=== PATIENT | female | born 1955 | race Caucasian/White ===

== ENCOUNTER 2017-01-18 18:33 | Inpatient (IN) | payer OTHER ==
[~2017-01-18] VITALS: Ht 160 cm; Wt 79.5 kg
[2017-01-18] MEDS ORDERED: SOD CHLORIDE 0.9% 1,000 ML IV STA ×2 (18:52→20:20)
[2017-01-18] MEDS ORDERED: DILTIAZEM 25 MG INJ IV ONE ×2 (19:00→20:00)
[2017-01-18 19:22] LABS: ADD SCAN DIFF NO
[2017-01-18 19:23] LABS: ABNORMAL IP MESSAGE 1; HEMOGLOBIN 16.8 g/dl (12.0-16.0); MEAN CORPUSCULAR HEMOGLOBIN 32.4 pg (29.0-33.0); MEAN CORPUSCULAR VOLUME 92.5 fl (82.0-101.0); MEAN PLATELET VOLUME 10.5 fl (7.4-10.4); PLATELET COUNT 201 10^3/UL (140-415); RED BLOOD COUNT 5.19 10^6/ul (4.20-5.40); RED CELL DISTRIBUTION WIDTH 12.3 % (11.5-14.5); WHITE BLOOD COUNT 9.8 10^3/ul (4.8-10.8)
[2017-01-18 19:44] LABS: INR 0.96; PARTIAL THROMBOPLASTIN TIME 25.2 Sec (25.0-35.0); PROTIME 12.8 Sec (12.2-14.2)
[2017-01-18] MEDS ORDERED: ENOXAPARIN 80 MG/0.8 ML SYG SC SCH (20:00)
[2017-01-18 20:05] LABS: CHLORIDE 96 mmol/L (97-110); POTASSIUM 3.4 mmol/L (3.5-5.1); SODIUM 142 mmol/L (135-144)
[2017-01-18] MEDS ORDERED: AMLO-147 PO (20:07)
[2017-01-18] MEDS ORDERED: ASPI-664 PO (20:07)
[2017-01-18 20:08] LABS: ANION GAP 20 (8-16); BLOOD UREA NITROGEN 23 mg/dl (7-20); CALCIUM 10.3 mg/dl (8.4-10.2); CARBON DIOXIDE 29 mmol/L (21-31); CREATININE 0.69 mg/dl (0.44-1.00); GLUCOSE 139 mg/dl (70-220)
[2017-01-18] MEDS ORDERED: METO-448 PO (20:08)
[2017-01-18] MEDS ORDERED: BENA1TAB13 PO (20:08)
[2017-01-18] MEDS ORDERED: NITR12SP TL (20:08)
--- NOTE | 2017-01-18 20:09 | RADRPT ---
PROCEDURE: Portable chest x-ray. CLINICAL INDICATION: Chest pain. TECHNIQUE: Portable AP view of the chest. COMPARISON: None. FINDINGS: There is mild vascular congestion. There is minimal bibasilar atelectasis. . The cardiac silhoue tte is magnified. No pleural effusion is seen. There is no pneumothorax. IMPRESSION: 1. Mild vascular congestion. RPTAT: HTAR .Michael Hernandez MD, MD Date Time Electronically viewed and signed by .Michael Hernandez MD, on 01/18/2017 20:08 .R/
[2017-01-18] MEDS ORDERED: SOD CHLORIDE 0.9% 1,000 ML IV SCH (20:15)
[2017-01-18 20:19] LABS: TROPONIN-I < 0.012 ng/ml (0.00-0.12)
[2017-01-18] MEDS ORDERED: POTASSIUM CHLORIDE (SR) 20 MEQ TAB PO STA (20:20)
--- NOTE | 2017-01-18 20:20 | ERA ---
ER Documentation Chief Complaint Date/Time DATE: 01/18/17 TIME: 20:16 Chief Complaint chest pain w/ sob x 3 days HPI This is a 61-year-old female who presents to the emergency room for evaluation of palpitations and shortness of breath is progressively gotten worse over the past 3 days. This patient did state that she has a history of atrial fibrillation and she did have an angiogram done in [place] which showed a 90% stenosis of the majority of her arteries. This patient states that she is not on any medication for atrial fibrillation which were admissions clinician office today, Dr. Everett who evaluated her and sent her to the emergency room for admission and an angiogram. When I evaluated this patient as she was complaining of palpitations and I did note a heart rate of 155 bpm. ROS All systems reviewed and are negative except as per history of present illness. Medications Home Meds Reported Medications Nitroglycerin* (Nitroglycerin* [place]) 400 Mcg/[place], 1 SPRAY TL Q5M Y for CHEST PAIN, SPRAY 01/18/17 Benazepril-Hydrochlorothiazide (Benazepril-Hydrochlorothiazide) 20-12.5 Mg Tablet, 1 TAB PO DAILY, #30 TAB 01/18/17 Metoprolol Tartrate* (Lopressor*) 25 Mg Tab, 25 MG PO BID, #60 TAB 01/18/17 Aspirin* (Aspirin* EC) 81 Mg Tablet.dr, 81 MG PO DAILY, TAB 01/18/17 Amlodipine Besylate* (Amlodipine Besylate*) 10 Mg Tablet, 10 MG PO DAILY, #30 TAB 01/18/17 Allergies Allergies: Coded Allergies: No Known Allergy (Unverified , 01/18/17) PMhx/Soc History of Surgery: No Anesthesia Reaction: No Hx Neurological Disorder: No Hx Respiratory Disorders: No Hx Cardiac Disorders: Yes (A FIB) Hx Psychiatric Problems: No Hx Miscellaneous Medical Probl: Yes (DM ) Hx Alcohol Use: No Hx Substance Use: No Hx Tobacco Use: No Smoking Status: Never smoker Physical Exam Vitals Vital Signs Date Time Temp Pulse Resp B/P Pulse Ox O2 Delivery O2 Flow Rate FiO2 01/18/17 19:30 97 17 110/73 98 Room Air 01/18/17 19:23 98 01/18/17 19:15 107 17 108/91 98 Room Air 01/18/17 19:00 153 18 119/96 99 Room Air 01/18/17 18:37 98.9 68 20 130/106 96 Physical Exam INITIAL VITAL SIGNS: Reviewed by me GENERAL: The patient is well developed and appropriate for usual state of health in no apparent distress HEENT: Pupils equal, round, and reactive to light. EOMI. There is no scleral icterus. NECK: C-spine is soft and supple, there is no meningismus. There is no cervical lymphadenopathy. LUNGS: Clear to auscultation bilaterally. There are no rales, wheezes or rhonchi. HEART: Irregularly irregular rhythm, no murmurs, clicks, rubs or gallops. ABDOMEN: Soft, non-tender, non-distended. There are bowel sounds in all four quadrants. No rebound or guarding. EXTREMITIES: There is no peripheral cyanosis or edema. No focal swelling or erythema. NEUROLOGICAL: The patient moves all four extremities with 5/5 strength. Cranial nerves II - XII are intact. Normal gait. Alert and oriented SKIN: There is no apparent rash or petechiae. HEME/LYMPHATIC: There is no evidence of excessive bruising or lymphedema. PSYCHIATRIC: The patient does not appear anxious or depressed. Result Diagram: 01/18/17189901/18/171899 Results 24 hrs Laboratory Tests Test 01/18/17 19:00 White Blood Count 9.810^3/ul Red Blood Count 5.1910^6/ul Hemoglobin 16.8g/dl Hematocrit 48.0% Mean Corpuscular Volume 92.5fl Mean Corpuscular Hemoglobin 32.4pg Mean Corpuscular Hemoglobin Concent 35.0g/dl Red Cell Distribution Width 12.3% Platelet Count 33708^3/UL Mean Platelet Volume 10.5fl Prothrombin Time 12.8Sec Prothrombin Time Ratio 1.0 INR International Normalized Ratio 0.96 Activated Partial Thromboplast Time 25.2Sec Sodium Level 142mmol/L Potassium Level 3.4mmol/L Chloride Level 96mmol/L Carbon Dioxide Level 29mmol/L Anion Gap 20 Blood Urea Nitrogen 23mg/dl Creatinine 0.69mg/dl Glucose Level 139mg/dl Calcium Level 10.3mg/dl Magnesium Level 1.8mg/dl Troponin I Pending Current Medications Medications (Trade) Dose Ordered Sig/[place] Route PRN Reason Start Time Stop Time Status Last Admin Dose Admin Sodium Chloride (NS) 1,000 ml @ 1,000 mls/hr Q1H STAT IV 01/18/17 18:52 01/18/17 19:51 DC 01/18/17 19:02 Diltiazem HCl (Cardizem Iv) 10 mg ONCE ONCE IV 01/18/17 19:00 01/18/17 19:01 DC 01/18/17 19:06 Diltiazem HCl (Cardizem Iv) 5 mg ONCE ONCE IV 01/18/17 20:00 01/18/17 20:01 DC 01/18/17 19:25 Enoxaparin Sodium (Lovenox) 80 mg ONCE SC 01/18/17 20:00 01/18/17 23:00 Procedures/MDM EKG: Rate/Rhythm: Atrial fibrillation with rapid ventricular response QRS, ST, T-waves: [No changes consistent w/ acute ischemia] Impression: Atrial fibrillation with rapid ventricular response Chest X-ray 1V Interpreted by me: Soft Tissue: No acute abnormalities Bones: No acute abnormalities Mediastinum/Cardiac Silhouette/Lungs: [No acute abnormalities] This 61-year-old female presents to the emergency room for evaluation of heart palpitations after being sent in by her admissions clinician. When I evaluated her I did note that this patient was in atrial fibrillation with rapid ventricular response. She did have a heart rate of 135 bpm. She was hemodynamically stable , and was not hypoxic. The patient was given 10 mg of Cardizem with minor relief and an additional 5 mg of Cardizem was given with a rate control of less than 100 bpm. This patient now has a heart rate of 94 bpm. She is in no acute distress. Lab work was obtained including a troponin which is within normal limits. The patient was sent in by her admissions clinician, Dr. Everett and I have spoken to him and he would like the patient admitted at this time for an angiogram. He would also like the patient started on Lovenox at this time and not Coumadin as he is planning an angiogram for possibly tomorrow. I have contacted this patient's admitting physician, Dr. Mcgee who is okay with the patient being admitted at this time to the telemetry floor. Cardiac Critical Care: Excluding all billable procedures Time: 38 minutes Treatments/Evaluations: Close monitoring for dangerous arrhythmia and cardiovascular collapse, while treating with advance cardiac medications and techniques. Departure Diagnosis: Primary Impression: Atrial fibrillation with RVR Additional Impressions: Hypercalcemia Heart palpitations Condition: ABISAI Mckeon DO January 18, 2017 20:20
[2017-01-18 20:30] VITALS: TEMP 98.6
[2017-01-18] MEDS ORDERED: ONDANSETRON 4 MG INJ IV PRN ×2 (20:30→22:30)
[2017-01-18] MEDS ORDERED: ACETAMINOPHEN 325 MG TAB PO PRN ×2 (20:30→22:30)
[2017-01-18 21:00] LABS: EOSINOPHILS # 0.1 10^3/ul (0.0-0.5); LYMPHOCYTES # 5.1 10^3/ul (0.8-2.9); MONOCYTE # 0.9 10^3/ul (0.3-0.9); NEUTROPHIL # 3.7 10^3/ul (1.6-7.5)
[2017-01-18 21:01] LABS: PLATELET ESTIMATE PLT APPEAR ADEQUATE
[2017-01-18] MEDS ORDERED: NACL 0.9% 3 ML SYG IV SCH (22:30)
[2017-01-18 23:00] VITALS: Ht 160 cm; Wt 79.5 kg
[2017-01-18] MEDS ORDERED: NITROGLYCERIN AEROSOL (4.9 GM) TL PRN (23:00)
[2017-01-18] MEDS: FAMOTIDINE 20 MG INJ IV SCH (23:09)
[2017-01-18] MEDS: METOPROLOL 25 MG TAB PO SCH (23:09)
[2017-01-18] MEDS: SOD CHLORIDE 0.9% 1,000 ML IV SCH (23:15)
[2017-01-19] VITALS (12 sets, daily range): BP systolic 99–174; BP diastolic 75–92; PULSE 113–160; RESP 18
--- NOTE | 2017-01-19 00:29 | HP ---
Date/Time of Note Date/Time of Note DATE: 01/19/17 TIME: 00:13 Assessment/Plan VTE Prophylaxis VTE Prophylaxis Intervention: LMWH Lines/Catheters IV Catheter Type (from [place]): Peripheral IV Urinary Cath still in place: No Assessment/Plan Chief Complaint/Hosp Course This is a 61-year-old female being admitted to the telemetry floor for: #1 A. fib with RVR: Patient currently right now is rate controlled after having received a total of 50 mg of Cardizem. We will continue to monitor the patient on telemetry. We will continue Lovenox as per cardiology recommendations every 12 hours. Patient is to undergo possible angiogram tomorrow by her executive consultant Dr. Everett. Will keep patient n.p.o. after midnight. We will continue patient's home medications. Recheck BMP in the a.m. and await TSH results Trend cardiac enzymes. X-ray showed some mild vascular congestion. She is in no acute distress right now will hold off on any Lasix at this time. Defer to cardiology for further management. #2 hypokalemia: Potassium was 3.4 was repleted in the ER will repeat in the a.m. #3 DVT and GI prophylaxis: Lovenox, famotidine. Further management will be implemented as per the clinical course. Problems: HPI/ROS Admit Date/Time Admit Date/Time January 18, 2017 at 20:15 Hx of Present Illness Chief complaint: Fast heart rate, palpitations This is a 61-year-old female who presents to the emergency room for evaluation of palpitations and shortness of breath is progressively gotten worse over the past 3 days. This patient did state that she has a history of atrial fibrillation and she did have an angiogram done in [place] which showed a 90% stenosis of the majority of her arteries. This patient states that she is not on any medication for atrial fibrillation which were executive consultant office today, Dr. Everett who evaluated her and sent her to the emergency room for admission and an angiogram. On admission as per the ED documentation patient had a heart rate of 155 bpm. She did receive a total of Cardizem 15 mg. At this time during my examination patient on telemetry monitoring does appear to be an irregularly irregular rhythm at approximately 90 bpm. Currently denies any palpitations or chest pain or headache or shortness of breath. Allergies: NKDA Medications: See MAR ROS Const: As per HPI Eyes : No pain discharge or redness or change in visual acuity ENT: No pain, sore throat, congestion, congestion, dysphagia or discharge Respiratory: As per HPI Cardiovascular: As per HPI GI : no change in appetite, abdominal pain, nausea, vomiting, diarrhea, constipation, or change in the color his stool Genitourinary: No dysuria, hematuria, flank pain , discharge or CVA tenderness Musculoskeletal: No joint pain, back pain, neck pain, restricted range of motion in neck or joints Skin: No rash, bruising or hives Neuro: No headache, dizziness, syncope, seizure, focal weakness Endocrine: No polyuria, polydipsia, temperature intolerance Psych: No hallucination, depression, anxiety or suicidal ideation PMH/Family/Social Past Medical History Hypertension Past Surgical History Past Surgical Hx: no surgical history Family History Significant Family History: heart disease (Mom) Social History Alcohol Use: none Smoking Status: Never smoker Drug Use: none Exam/Review of Systems Vital Signs Vitals Vital Signs Date Time Temp Pulse Resp B/P Pulse Ox O2 Delivery O2 Flow Rate FiO2 01/18/17 22:20 107 20 130/86 94 Room Air 01/18/17 20:30 98.6 Intake and Output 01/18/17 01/18/17 01/19/17 15:00 23:00 07:00 Intake Total 2000 ml Balance 2000 ml Exam Exam General: This is a very pleasant 61-year-old female laying in bed comfortably in no acute distress. HEENT: Atraumatic, normocephalic. The pupils are equal, round and reactive. Extraocular motor are intact Neck: Supple with full range of motion. No rigidity or meningismus Chest: Nontender Lungs: Clear to auscultation bilaterally no crackles rales or wheezing Heart: Irregularly irregular rhythm, no murmurs appreciated. Abdomen: Soft , nontender, nondistended , bowel sounds are present. No guarding no rebound tenderness , No masses or organomegaly. No costovertebral temporal angle mass Extremities: Normal to inspection, no edema no cyanosis Neurologic: Normal mental status, speech normal, cranial nerves II through XII are intact, motor and sensory are intact, no focal weakness Additional Comments ROCEDURE: Portable chest x-ray. CLINICAL INDICATION: Chest pain. TECHNIQUE: Portable AP view of the chest. COMPARISON: None. FINDINGS: There is mild vascular congestion. There is minimal bibasilar atelectasis. . The cardiac silhouette is magnified. No pleural effusion is seen. There is no pneumothorax. IMPRESSION: 1. Mild vascular congestion. EKG: Rate/Rhythm: Atrial fibrillation with rapid ventricular response QRS, ST, T-waves: [No changes consistent w/ acute ischemia] Impression: Atrial fibrillation with rapid ventricular response As per ED physician documentation Labs Result Diagram: 01/18/17 19001/18/17 190 Medications Medications Current Medications Sodium Chloride 1,000 ml @ 80 mls/hr [id number] IV ; Start 01/18/17 at 20:15; Stop 01/19/17 at 08:44 Sodium Chloride (NS) 1,000 ml @ 50 mls/hr Q20H IV Last administered on 23:15; Admin Dose 50 MLS/HR; Start 01/18/17 at 22:25 Ondansetron HCl (Zofran Inj) 4 mg Q6H PRN IV NAUSEA AND/OR VOMITING; Start at 22:30 Acetaminophen (Tylenol Tab) 650 mg Q6H PRN PO PAIN LEVEL 1-3 OR FEVER; Start at 22:30 Famotidine (Pepcid Iv) 20 mg Q12 IV Last administered on 01/18/17 23:09; Admin Dose 20 MG; Start 01/18/17 at 22:30 Amlodipine Besylate (Norvasc) 10 mg DAILY PO ; Start 01/19/17 at 09:00 Aspirin (Halfprin) 81 mg DAILY PO ; Start 01/19/17 at 09:00 Metoprolol Tartrate (Lopressor) 25 mg BID PO Last administered on 01/18/17 23: 09; Admin Dose 25 MG; Start 01/18/17 at 23:00 Nitroglycerin (Nitroglycerin ([place])) 1 spray Q5M PRN TL CHEST PAIN; Start at 23:00 Miscellaneous Information 1 tab DAILY PO ; Start 01/19/17 at 09:00; Status ZAHEER CALZADA January 19, 2017 00:24
[2017-01-19 01:29] LABS: CREATINE KINASE 44 IU/L (23-200)
[2017-01-19 01:43] LABS: CK-MB 0.62 ng/ml (0.0-2.4)
[2017-01-19 01:44] LABS: TROPONIN-I < 0.012 ng/ml (0.00-0.12)
[2017-01-19 07:32] LABS: ADD SCAN DIFF NO
[2017-01-19 07:38] LABS: BASOPHILS % 0.6 % (0.0-2.0); EOSINOPHILS # 0.2 10^3/ul (0.0-0.5); EOSINOPHILS % 2.8 % (0.0-7.0); HEMATOCRIT 40.2 % (37.0-47.0); HEMOGLOBIN 13.6 g/dl (12.0-16.0); LYMPHOCYTES # 3.9 10^3/ul (0.8-2.9); LYMPHOCYTES % 58.1 % (15.0-51.0); MEAN CORPUSCULAR HEMOGLOBIN 32.2 pg (29.0-33.0); MEAN CORPUSCULAR HGB CONC 33.8 g/dl (32.0-37.0); MEAN PLATELET VOLUME 10.7 fl (7.4-10.4); MONOCYTE # 0.5 10^3/ul (0.3-0.9); MONOCYTES % 6.9 % (0.0-11.0); NEUTROPHIL # 2.1 10^3/ul (1.6-7.5); NEUTROPHILS % 31.5 % (39.0-77.0); PLATELET COUNT 155 10^3/UL (140-415); RED BLOOD COUNT 4.23 10^6/ul (4.20-5.40); RED CELL DISTRIBUTION WIDTH 12.4 % (11.5-14.5); WHITE BLOOD COUNT 6.7 10^3/ul (4.8-10.8)
[2017-01-19] MEDS: ASPIRIN (EC) 81 MG TAB PO SCH (08:14)
[2017-01-19] MEDS: BENAZEPRIL 20 MG TAB PO SCH (08:15)
[2017-01-19] MEDS: METOPROLOL 25 MG TAB PO SCH ×3 (08:15→21:08)
[2017-01-19] MEDS: HYDROCHLOROTHIAZIDE 12.5 MG CAP PO SCH (08:15)
[2017-01-19] MEDS: FAMOTIDINE 20 MG INJ IV SCH ×2 (08:15→20:36)
[2017-01-19] MEDS: ENOXAPARIN 80 MG/0.8 ML SYG SC SCH ×2 (08:17→20:46)
[2017-01-19 08:47] LABS: ALBUMIN 3.6 g/dl (3.3-4.9); ALBUMIN/GLOBULIN RATIO 1.33; BILIRUBIN,INDIRECT 0.5 mg/dl (0-1.1); BILIRUBIN,TOTAL 0.5 mg/dl (0.2-1.3); CALCIUM 9.2 mg/dl (8.4-10.2); CREATININE 0.66 mg/dl (0.44-1.00); POTASSIUM 4.2 mmol/L (3.5-5.1); TOTAL PROTEIN 6.3 g/dl (6.1-8.1)
[2017-01-19 08:49] LABS: CREATINE KINASE 42 IU/L (23-200)
[2017-01-19] MEDS ORDERED: AMLODIPINE 10 MG TAB PO SCH (09:00)
[2017-01-19 09:14] LABS: TROPONIN-I < 0.012 ng/ml (0.00-0.12)
[2017-01-19] MEDS ORDERED: METOPROLOL 5 MG INJ IV PRN (12:00)
[2017-01-19] MEDS: SOD CHLORIDE 0.9% 1,000 ML IV SCH (17:50)
[2017-01-19] MEDS ORDERED: DIGOXIN 500 MCG INJ IV ONE (21:00)
[2017-01-19] MEDS ORDERED: FUROSEMIDE 20 MG INJ IV ONE (21:00)
[2017-01-20] VITALS (13 sets, daily range): BP systolic 92–137; BP diastolic 62–98; PULSE 78–146; RESP 16–20
--- NOTE | 2017-01-20 00:08 | CONS ---
DATE OF ADMISSION: 01/18/2017 DATE OF CONSULTATION: 01/19/2017 REASON FOR CONSULTATION: Atrial fibrillation with rapid ventricular response, obstructive coronary artery disease, chest pain. REQUESTING PHYSICIAN: Dr. Fairchild from the hospitalist service, Dr. Tanvir Everett. HISTORY OF PRESENT ILLNESS: Ms. Miller is a 61-year-old female with a history of coronary artery d isease, status post left heart catheterization done in [place], which revealed multivessel obstructiv e coronary artery disease with the patient being recommended to undergo surgery, but the patient did not do this and returned to the [place]. The patient had palpitations and presented to [facility] academic guidance specialist's office, Dr. Tanvir Everett, where she was found to be atrial fibrillation with rapid ventricular response. The patient was subsequently referred to the emergency department here at [facility]. Upon arrival, temperature 98.9, blood pressure 130/106, pulse 68, respir atory 20, saturating 96%. The patient's labs revealed white count 9.8, hemoglobin 16.8, platelet co unt 201. A sodium of 142, potassium 3.4, creatinine 0.69, BUN of 23. Troponin, which was negative. TSH of 1.52. INR 0.96. The patient underwent a chest x-ray revealing mild vascular congestion. The patient's electrocardiogram revealed atrial fibrillation with rapid ventricular response, rate o f 155, normal axis, normal intervals with nonspecific ST and T-wave abnormalities diffusely. The walt michael subsequently has been admitted to the floor where she has been placed on Lovenox, aspirin, mar cium channel rachid, and started on beta rachid by myself today due to rapid heart rates. The quang rodrigues continued to have complaints of chest pain and palpitations. PAST MEDICAL HISTORY: As above in HPI. MEDICATIONS PRIOR TO ADMIT: 1. Norvasc 10 mg daily. 2. Benazepril/hydrochlorothiazide 20/12.5 mg daily. 3. Metoprolol 25 mg p.o. b.i.d. 4. Sublingual nitroglycerin p.r.n. 5. Aspirin 81 mg daily. MEDICATIONS CURRENTLY IN HOSPITAL. 1. Toprol 5 mg IV push q.6h. p.r.n. 2. Norvasc 10 mg daily. 3. Aspirin 81 mg daily. 4. Hydrochlorothiazide 12.5 mg daily. 5. Lovenox 80 mg subq q.12. 6. Benazepril 20 mg daily. 7. Metoprolol 25 mg p.o. b.i.d. 8. Sublingual nitroglycerin p.r.n. 9. Pepcid 20 mg IV q.12h. 10. IV fluid hydration at 50 mL an hour. ALLERGIES: NO KNOWN DRUG ALLERGIES. SOCIAL HISTORY: No tobacco, ETOH, or illicit drug use. FAMILY HISTORY: Negative for sudden cardiac or early CAD. REVIEW OF SYSTEMS: As above in HPI. CONSTITUTIONAL: No fevers, chills. PULMONARY: Shortness of breath. CARDIOVASCULAR: Chest pain, palpitations, atrial fibrillation. GASTROINTESTINAL: No vomiting. GENITOURINARY: No hematuria. MUSCULOSKELETAL: Degenerative joint disease. PSYCHIATRIC: The patient denies depression. NEUROLOGIC: No documented history of CVA. PHYSICAL EXAMINATION: VITAL SIGNS: Temperature 98, blood pressure 146/90, pulse in the 130s, satting 98%. GENERAL: The patient is alert, awake, complaining of shortness of breath, chest pain, palpitations. NECK: JVP approximately 8 to 9 cm water. CHEST: Fair movement throughout with decreased breath sounds at bases bilaterally. HEART: Tachycardic, irregularly irregular, I/ systolic murmur. ABDOMEN: Positive bowel sounds, soft. EXTREMITIES: No pitting edema, 1+ pulses bilaterally, posterior tibial. LABORATORY DATA: As above in HPI, most recently from the , white blood cell count 6.7, hemoglob in 13.6, platelet count 155. Sodium 139, potassium 4.2, creatinine 0.6, BUN 17. Troponin negative. INR 0.96. IMAGING STUDIES: As above in HPI. No further imaging studies for my review at this time. ELECTROCARDIOGRAM: As above in HPI. No further electrocardiograms for my review at this time. IMPRESSION: 1. Atrial fibrillation with rapid ventricular response. 2. Chest pain. 3. Coronary artery disease with known obstructive lesions by left heart catheterization recently in [place]. 4. Abnormal electrocardiogram with diffuse nonspecific ST-T abnormalities, assess for acute coronar y syndrome. 5. Hypertension, somewhat labile. RECOMMENDATIONS: 1. At this time, would maintain the patient on telemetry monitoring to follow rhythm and rate contr ol closely. 2. Would increase the patient's beta rachid to improve heart rate control and will give the patien t digoxin load in order to acutely improve heart rate control. 3. Would send 1 additional troponin to ensure this patient has not provoked any acute coronary synd romes in the setting of rapid atrial fibrillation with supposedly known obstructive lesions in her c oronary arteries. 4. Continue the patient's benazepril at this time and additionally continue the patient's Lovenox f or prevention of thromboembolic complications in the setting of atrial fibrillation. Will decrease the patient's Norvasc to allow the patient to better tolerate the beta rachid. 5. Check a 2D echocardiogram to further assess patient's ejection fraction, wall motion, and any ma yoel valve abnormalities. 6. Will review the patient's cath films that have been brought to me from her primary academic guidance specialist, Dr. Everett, and assess for the possibility of possible angioplasty versus definite need for coronar y artery bypass graft surgery, as the patient is unsure if would like to undergo bypass surgery at t his time. Thank you for allowing me to take part in the care of this patient. I will continue to follow along very closely with you with further recommendations to be made as the patient progresses through her inpatient hospital clinical course. Dictated By: JOSSY SUAREZ/ANNE Conf#: [id number] DID#: [id number] CC: ZAHEER FAIRCHILD MD;*EndCC*
[2017-01-20] MEDS: ZOLPIDEM 5 MG TAB PO PRN ×2 (01:22→20:59)
[2017-01-20] MEDS: DIGOXIN 500 MCG INJ IV SCH ×2 (03:37→12:49)
[2017-01-20 07:24] LABS: ADD SCAN DIFF NO
[2017-01-20 07:36] LABS: BASOPHIL # 0.1 10^3/ul (0.0-0.1); BASOPHILS % 0.7 % (0.0-2.0); EOSINOPHILS # 0.2 10^3/ul (0.0-0.5); EOSINOPHILS % 2.6 % (0.0-7.0); HEMOGLOBIN 13.9 g/dl (12.0-16.0); LYMPHOCYTES # 3.5 10^3/ul (0.8-2.9); LYMPHOCYTES % 50.4 % (15.0-51.0); MEAN CORPUSCULAR HEMOGLOBIN 31.9 pg (29.0-33.0); MEAN CORPUSCULAR HGB CONC 33.9 g/dl (32.0-37.0); MEAN PLATELET VOLUME 10.6 fl (7.4-10.4); MONOCYTE # 0.5 10^3/ul (0.3-0.9); NEUTROPHIL # 2.7 10^3/ul (1.6-7.5); PLATELET COUNT 147 10^3/UL (140-415); RED BLOOD COUNT 4.36 10^6/ul (4.20-5.40); RED CELL DISTRIBUTION WIDTH 12.2 % (11.5-14.5); WHITE BLOOD COUNT 6.9 10^3/ul (4.8-10.8)
[2017-01-20 07:50] LABS: POTASSIUM 4.2 mmol/L (3.5-5.1)
[2017-01-20 07:53] LABS: CREATININE 0.77 mg/dl (0.44-1.00)
[2017-01-20 07:54] LABS: CALCIUM 9.6 mg/dl (8.4-10.2)
[2017-01-20 07:56] LABS: MAGNESIUM 1.6 mg/dl (1.7-2.5); PHOSPHORUS 3.8 mg/dl (2.5-4.9)
[2017-01-20] MEDS: METOPROLOL 25 MG TAB PO SCH ×2 (08:26→20:44)
[2017-01-20] MEDS: BENAZEPRIL 20 MG TAB PO SCH (08:26)
[2017-01-20] MEDS: HYDROCHLOROTHIAZIDE 12.5 MG CAP PO SCH (08:26)
[2017-01-20] MEDS: FAMOTIDINE 20 MG INJ IV SCH ×2 (08:27→20:43)
[2017-01-20] MEDS: ASPIRIN (EC) 81 MG TAB PO SCH (08:27)
[2017-01-20] MEDS: ENOXAPARIN 80 MG/0.8 ML SYG SC SCH ×2 (08:34→20:53)
[2017-01-20] MEDS ORDERED: AMLODIPINE 10 MG TAB PO SCH (09:00)
[2017-01-20] MEDS ORDERED: MAGNESIUM SULFATE 2 GM/50 ML 50 ML IVPB ONE (15:00)
--- NOTE | 2017-01-20 16:28 | PN ---
DATE: 01/20/2017 TIME OF EVALUATION: 1530. SUBJECTIVE DATA: Denies any chest pain. Currently, the heart rate is better controlled. OBJECTIVE DATA: VITAL SIGNS: Temperature 98.3, pulse rate 93, respiratory rate 18, blood pressure 92/62, oxygen saturation 93% on room air. GENERAL: This is an obese female lying in bed in no apparent distress. HEENT: Head normocephalic and atraumatic. Eyes: Anicteric sclerae. Conjunctivae clear. ENT: Nasal septum is midline. Oral mucosa is moist. NECK: Supple. No JVD noticed. RESPIRATORY: Bilaterally clear to auscultation. No adventitious breath sounds heard. No use of accessory muscles of respiration. CARDIAC: Irregularly irregular rhythm. S1 and S2 heard. ABDOMEN: Soft, nontender and nondistended. Bowel sounds positive in all 4 quadrants. GENITOURINARY: Deferred. EXTREMITIES: No cyanosis, no clubbing, no edema. Peripheral pulses palpable. SKIN: The patient is awake, alert and oriented. Cranial nerves are grossly intact. LABORATORY AND DIAGNOSTIC DATA: WBC 6.9, hemoglobin 13.9, hematocrit 41.0, platelet count 147. Sodium 142, potassium 4.0, chloride 103, carbon dioxide 28 , anion gap 15, BUN 12, creatinine 0.7, glucose 125, calcium 9.6, phosphorus 3.1 , magnesium 1.6. ASSESSMENT AND PLAN: 1. Atrial fibrillation with rapid ventricular response. Currently, rate controlled. Continue beta blockers. The patient on therapeutic anticoagulation for stroke prophylaxis. 2. Essential hypertension. Currently on antihypertensives. 3. Coronary artery disease with known obstructing lesion for left heart catheterization in [place]. Continue anticoagulation. Await further input from Cardiology. Pending 2D echocardiogram. 4. Hypomagnesemia. Replete. 5. Obesity, BMI of 31.0 kg/meter sq. Weight reduction will be advised. A fasting lipid panel and hemoglobin A1c will be obtained. 6. Fluid, electrolytes and nutrition, on a low cholesterol diet. 7. Deep venous thrombosis prophylaxis. On therapeutic anticoagulation. 8. Gastrointestinal prophylaxis. H2 receptor blockers. PLAN: 1. Continue telemetry monitoring. 2. Await further inputs from Cardiology. 3. Replete magnesium. The case and management of this patient was fully discussed with Dr. Freeman. ASHWINI FREEMAN MD, AM/ANNE Conf#: [id number] [facility]#: [id number] MTDD
--- NOTE | 2017-01-20 17:27 | CONS ---
Date/Time of Note Date/Time of Note DATE: 01/20/17 TIME: 17:23 Assessment/Plan Assessment/Plan Chief Complaint/Hosp Course IMPRESSION: 1. Atrial fibrillation with rapid ventricular response.-now improved HR s/p digoxin load 2. Chest pain.-negative troponin x 3 even after rapid AF 3. Coronary artery disease with known obstructive lesions by left heart catheterization recently in [place]. 4. Abnormal electrocardiogram with diffuse nonspecific ST-T abnormalities, assess for acute coronary syndrome. 5. Hypertension, somewhat labile. Recc: -Tele -Continue BB -Start PO digoxin -Decrease dose of norvasc and continue ACEI given marginal BP -Continue asa/lovenox -Consider d/c of HCTZ if BP remains marginal -Patient tenatively scheduled for C with possible PTCA/stent monday at 12 noon Problems: Consultation Date/Type/Reason Admit Date/Time January 18, 2017 at 20:15 Initial Consult Date 01/19/17 Type of Consultation: Cardiology Reason for Consultation AF/cad Referring Provider: JOHNIE FREEMAN Exam/Review of Systems Vital Signs Vitals Vital Signs Date Time Temp Pulse Resp B/P Pulse Ox O2 Delivery O2 Flow Rate FiO2 01/20/17 16:43 85 01/20/17 15:15 98.8 18 92/62 93 01/19/17 20:00 Room Air Intake and Output 01/19/17 01/19/17 01/20/17 15:00 23:00 07:00 Intake Total 1000 ml 400 ml Balance 1000 ml 400 ml Exam Review of Systems: CONSTITUTIONAL: No fevers, chills. PULMONARY: No sob CARDIOVASCULAR: No chest pain/palpitations GASTROINTESTINAL: No nausea/vomiting. GENITOURINARY: No hematuria/dysuria. MUSCULOSKELETAL: No myagias/arthalgias. PSYCHIATRIC: The patient denies depression. NEUROLOGIC: No weakness Constitutional: alert Psych: no complaints Head: normocephalic ENMT: mucosa pink and moist Neck: jvd, supple Respiratory: clear to auscultation Cardiovascular: irregular rhythm Gastrointestinal: non-tender, soft Musculoskeletal: muscle tone (normal) Extremities: edema (none) Neurological: lethargic Results Result Diagram: 01/20/17 0647 01/20/17 0647 Results 24 hrs Laboratory Tests Test 01/20/17 06:47 White Blood Count 6.9 Red Blood Count 4.36 Hemoglobin 13.9 Hematocrit 41.0 Mean Corpuscular Volume 94.0 Mean Corpuscular Hemoglobin 31.9 Mean Corpuscular Hemoglobin Concent 33.9 Red Cell Distribution Width 12.2 Platelet Count 147 Mean Platelet Volume 10.6 H Neutrophils % 39.0 Lymphocytes % 50.4 Monocytes % 7.0 Eosinophils % 2.6 Basophils % 0.7 Nucleated Red Blood Cells % 0.0 Neutrophils # 2.7 Lymphocytes # 3.5 H Monocytes # 0.5 Eosinophils # 0.2 Basophils # 0.1 Nucleated Red Blood Cells # 0.0 Sodium Level 142 Potassium Level 4.2 Chloride Level 103 Carbon Dioxide Level 28 Anion Gap 15 Blood Urea Nitrogen 12 Creatinine 0.77 Glucose Level 125 Calcium Level 9.6 Phosphorus Level 3.8 Magnesium Level 1.6 L Troponin I < 0.012 Medications Medications Current Medications Ondansetron HCl (Zofran Inj) 4 mg Q6H PRN IV NAUSEA AND/OR VOMITING; Start at 22:30 Acetaminophen (Tylenol Tab) 650 mg Q6H PRN PO PAIN LEVEL 1-3 OR FEVER; Start at 22:30 Famotidine (Pepcid Iv) 20 mg Q12 IV Last administered on 01/20/17 08:27; Admin Dose 20 MG; Start 01/18/17 at 22:30 Aspirin (Halfprin) 81 mg DAILY PO Last administered on 01/20/17 08:27; Admin Dose 81 MG; Start 01/19/17 at 09:00 Nitroglycerin (Nitroglycerin ([place])) 1 spray Q5M PRN TL CHEST PAIN; Start at 23:00 Hydrochlorothiazide (Hydrochlorothiazide) 12.5 mg DAILY PO Last administered on 01/20/17 08:26; Admin Dose 12.5 MG; Start 01/19/17 at 09:00 Enoxaparin Sodium (Lovenox) 80 mg Q12 SC Last administered on 01/20/17 08:34; Admin Dose 80 MG; Start 01/19/17 at 09:00 Benazepril HCl (Lotensin) 20 mg DAILY PO Last administered on 01/20/17 08:26; Admin Dose 20 MG; Start 01/19/17 at 09:00 Metoprolol Tartrate (Lopressor) 5 mg Q6H PRN IV Heart Rate >110 Last administered on 01/19/17 13:28; Admin Dose 5 MG; Start 01/19/17 at 12:00 Amlodipine Besylate (Norvasc) 5 mg DAILY PO Last administered on 01/20/17 08: 25; Admin Dose 5 MG; Start 01/20/17 at 09:00 Metoprolol Tartrate (Lopressor) 50 mg BID PO Last administered on 01/20/17 08: 26; Admin Dose 50 MG; Start 01/19/17 at 21:00 Zolpidem Tartrate (Ambien) 5 mg HS PRN PO INSOMNIA Last administered on 01:22; Admin Dose 5 MG; Start 01/19/17 at 21:00 JOSSY DODD January 20, 2017 17:27
--- NOTE | 2017-01-20 19:26 | RADRPT ---
Echocardiogram Report Patient Name: OSCAR LEY Gender: Female Date: 1955 Study Date: 20-Jan-2017 Acetylene Burner: Beatriz Maynard [facility] Location: 5546 Ref. Physician: ZAHEER FAIRCHILD Quality: Adequate Procedures: Transthoracic echocardiogram with complete 2D, M-Mode, and doppler examination. Indications: Atrial Fibrillation w/ RVR. 2D/M Mode Doppler Measurement Value Normal Ranges Measurement Value Normal Ranges LVIDd 2D 4.9 3.5 - 5.6 cm AV Peak Miguel 1.1 m/sec LVIDs 2D 3.0 2.1 - 4.1 cm AV Peak PG 5.0 mmHg FS 2D 38.0 % LVOT Peak Miguel 0.9 m/sec LVPWd 2D 1.1 0.6 - 1.1 cm LVOT Peak PG 3.0 mmHg IVSd 2D 1.0 0.6 - 1.1 cm TR Peak Miguel 2.7 m/sec IVS/LVPW 2D 0.9 TR Peak PG 28.0 mmHg AoR Diam 2D 2.9 2.0 - 3.7 cm RVSP 36.0 mmHg LA/Ao 2D 1 0 - 1 LA Dimen 2D 4.0 2.3 - 4.0 cm Findings Left Ventricle: Normal left ventricular systolic function. Normal left ventricular cavity size. Normal left ventricular wall thickness. Ejection fraction is visually estimated at 4045 %. Tissue Doppler/Mitral Doppler indices are indeterminate in this study due to the presence of atrial fibrillation. Right Ventricle: Normal right ventricular size. Normal right ventricular systolic function. Left Atrium: The left atrium is normal in size. Right Atrium: The right atrium is normal in size. Mitral Valve: Mitral valve leaflets appear mildly thickened. Mild mitral annular calcification. Mild to moderate mitral valve regurgitation. Aortic Valve: No hemodynamically significant aortic stenosis by doppler. Trace aortic valve regurgitation. Tricuspid Valve: Normal appearance of the tricuspid valve. Estimated peak PA systolic pressure 36 mmHg. There is moderate tricuspid regurgitation. Pulmonic Valve: Pulmonic valve not well visualized. Pericardium: Normal pericardium with no significant pericardial effusion. Aorta: Normal aortic root. IVC: Normal size and normal respiratory collapse consistent with normal right atrial pressure. Conclusions 1.Normal left ventricular systolic function. Normal left ventricular cavity size. Normal left ventricular wall thickness. Ejection fraction is visually estimated at 40-45 %. Tissue Doppler/Mitral Doppler indices are indeterminate in this study due to the presence of atrial fibrillation. 2.Mild to moderate mitral valve regurgitation. 3.Trace aortic valve regurgitation. 4.Estimated peak PA systolic pressure 36 mmHg. 5.There is moderate tricuspid regurgitation. Electronically Signed By: Allen Baeza 20-Jan-2017 19:24:57 -0700 Patient Name: OSCAR LEY Study Date: 20-Jan-2017 [id number]
[2017-01-20] MEDS: DILTIAZEM (CD) 120 MG CAP PO SCH (20:44)
[2017-01-20] MEDS ORDERED: METOPROLOL 5 MG INJ IV PRN (21:00)
[2017-01-21] VITALS (11 sets, daily range): BP systolic 109–138; BP diastolic 67–96; PULSE 74–100; RESP 15–19
[2017-01-21 07:26] LABS: ADD SCAN DIFF NO
[2017-01-21 07:29] LABS: BASOPHILS % 0.6 % (0.0-2.0); EOSINOPHILS # 0.2 10^3/ul (0.0-0.5); EOSINOPHILS % 3.5 % (0.0-7.0); HEMATOCRIT 43.6 % (37.0-47.0); HEMOGLOBIN 14.8 g/dl (12.0-16.0); LYMPHOCYTES # 3.4 10^3/ul (0.8-2.9); LYMPHOCYTES % 54.9 % (15.0-51.0); MEAN CORPUSCULAR HEMOGLOBIN 31.6 pg (29.0-33.0); MEAN CORPUSCULAR HGB CONC 33.9 g/dl (32.0-37.0); MEAN PLATELET VOLUME 10.2 fl (7.4-10.4); MONOCYTE # 0.5 10^3/ul (0.3-0.9); MONOCYTES % 7.2 % (0.0-11.0); NEUTROPHIL # 2.1 10^3/ul (1.6-7.5); NEUTROPHILS % 33.6 % (39.0-77.0); PLATELET COUNT 154 10^3/UL (140-415); RED BLOOD COUNT 4.69 10^6/ul (4.20-5.40); RED CELL DISTRIBUTION WIDTH 12.3 % (11.5-14.5); WHITE BLOOD COUNT 6.2 10^3/ul (4.8-10.8)
[2017-01-21 07:50] LABS: CHOL/HDL RATIO 4.1 RATIO; MAGNESIUM 1.8 mg/dl (1.7-2.5); PHOSPHORUS 4.2 mg/dl (2.5-4.9)
[2017-01-21 07:53] LABS: CALCIUM 9.4 mg/dl (8.4-10.2); CREATININE 0.63 mg/dl (0.44-1.00); POTASSIUM 3.9 mmol/L (3.5-5.1)
[2017-01-21] MEDS: FAMOTIDINE 20 MG INJ IV SCH ×2 (08:59→22:38)
[2017-01-21] MEDS: AMLODIPINE 2.5 MG TAB PO SCH (09:00)
[2017-01-21] MEDS: ASPIRIN (EC) 81 MG TAB PO SCH (09:00)
[2017-01-21] MEDS: METOPROLOL 25 MG TAB PO SCH ×2 (09:00→22:40)
[2017-01-21] MEDS: BENAZEPRIL 20 MG TAB PO SCH (09:01)
[2017-01-21] MEDS: DILTIAZEM (CD) 120 MG CAP PO SCH ×2 (09:01→22:39)
[2017-01-21] MEDS: ENOXAPARIN 80 MG/0.8 ML SYG SC SCH ×2 (09:34→22:44)
--- NOTE | 2017-01-21 09:41 | PN ---
Date/Time of Note Date/Time of Note DATE: 01/21/17 TIME: 09:39 Assessment/Plan VTE Prophylaxis VTE Prophylaxis Intervention: LMWH Lines/Catheters [facility] (from [facility] Urinary Cath still in place: No Assessment/Plan Chief Complaint/Hosp Course Assessment and plan 1. A. fib with RVR. Rate controlled at this time. Continue on beta-rachid. Continue on Lovenox anticoagulation. 2. Essential hypertension. Continue antihypertensives and adjust as needed 3. CAD. Note patient did have history of obstructing lesion from left heart catheterization in [place]. Continue anticoagulation. Tentative plan for angiogram with possible PCI on January 23, 2017. 4. Hypomagnesemia. Will monitor and replete as needed 5. Obesity. Reduction was advised DVT prophylaxis: Therapeutic anticoagulation GERD prophylaxis: H2 rachid Disposition plan: Continue with therapeutic dose of Lovenox. Continue telemetry monitoring. Tentative plan for angiogram with possible PCI January 23, 2017. Will follow up Discussed plan of care with Dr. Taveras Problems: Subjective 24 Hr Interval Summary Free Text/Dictation Denies any chest pain at this time. Reports no shortness of breath Exam/Review of Systems Vital Signs Vitals Vital Signs Date Time Temp Pulse Resp B/P Pulse Ox O2 Delivery O2 Flow Rate FiO2 01/21/17 08:33 82 01/21/17 08:05 98.1 15 138/96 94 01/19/17 20:00 Room Air Intake and Output 01/20/17 01/20/17 01/21/17 15:00 23:00 07:00 Intake Total 800 ml 600 ml Balance 800 ml 600 ml Exam Constitutional: alert, oriented Psych: nl mood/affect Head: normocephalic Neck: supple, No jvd Respiratory: normal air movement Cardiovascular: irregular rhythm Gastrointestinal: non-tender, soft Musculoskeletal: nl extremities to inspection, nl gait and stance Extremities: normal pulses Neurological: [employer] II-XII intact, nl mental status Skin: nl turgor Results Result Diagram: 01/21/1715 01/21/1715 Results 24 hrs Laboratory Tests Test 01/21/17 07:15 White Blood Count 6.2 Red Blood Count 4.69 Hemoglobin 14.8 Hematocrit 43.6 Mean Corpuscular Volume 93.0 Mean Corpuscular Hemoglobin 31.6 Mean Corpuscular Hemoglobin Concent 33.9 Red Cell Distribution Width 12.3 Platelet Count 154 Mean Platelet Volume 10.2 Neutrophils % 33.6 L Lymphocytes % 54.9 H Monocytes % 7.2 Eosinophils % 3.5 Basophils % 0.6 Nucleated Red Blood Cells % 0.0 Neutrophils # 2.1 Lymphocytes # 3.4 H Monocytes # 0.5 Eosinophils # 0.2 Basophils # 0.0 Nucleated Red Blood Cells # 0.0 Sodium Level 140 Potassium Level 3.9 Chloride Level 103 Carbon Dioxide Level 28 Anion Gap 13 Blood Urea Nitrogen 9 Creatinine 0.63 Glucose Level 128 Hemoglobin A1c 7.3 H Calcium Level 9.4 Phosphorus Level 4.2 Magnesium Level 1.8 Triglycerides Level 170 H Cholesterol Level 146 LDL Cholesterol, Calculated 77 HDL Cholesterol 35 Cholesterol/HDL Ratio 4.1 Medications Medications Current Medications Ondansetron HCl (Zofran Inj) 4 mg Q6H PRN IV NAUSEA AND/OR VOMITING; Start at 22:30 Acetaminophen (Tylenol Tab) 650 mg Q6H PRN PO PAIN LEVEL 1-3 OR FEVER; Start at 22:30 Famotidine (Pepcid Iv) 20 mg Q12 IV Last administered on 01/21/17 08:59; Admin Dose 20 MG; Start 01/18/17 at 22:30 Aspirin (Halfprin) 81 mg DAILY PO Last administered on 01/21/17 09:00; Admin Dose 81 MG; Start 01/19/17 at 09:00 Nitroglycerin (Nitroglycerin ([place])) 1 spray Q5M PRN TL CHEST PAIN; Start at 23:00 Enoxaparin Sodium (Lovenox) 80 mg Q12 SC Last administered on 01/21/17 09:34; Admin Dose 80 MG; Start 01/19/17 at 09:00 Benazepril HCl (Lotensin) 20 mg DAILY PO Last administered on 01/21/17 09:01; Admin Dose 20 MG; Start 01/19/17 at 09:00 Metoprolol Tartrate (Lopressor) 50 mg BID PO Last administered on 01/21/17 09: 00; Admin Dose 50 MG; Start 01/19/17 at 21:00 Zolpidem Tartrate (Ambien) 5 mg HS PRN PO INSOMNIA Last administered on 20:59; Admin Dose 5 MG; Start 01/19/17 at 21:00 Amlodipine Besylate (Norvasc) 2.5 mg DAILY PO Last administered on 01/21/17 09 :00; Admin Dose 2.5 MG; Start 01/21/17 at 09:00 Digoxin (Digoxin) 0.125 mg DAILY@13 PO ; Start 01/21/17 at 13:00 Metoprolol Tartrate (Lopressor) 5 mg Q4H PRN IV Heart Rate >110; Start at 21:00 Diltiazem HCl (Cardizem Cd) 120 mg BID PO Last administered on 01/21/17 09:01 ; Admin Dose 120 MG; Start 01/20/17 at 21:00 PAWEL CARLOS January 21, 2017 09:41
[2017-01-21] MEDS: DIGOXIN 0.125 MG TAB PO SCH (12:43)
--- NOTE | 2017-01-21 13:02 | CONS ---
Date/Time of Note Date/Time of Note DATE: 01/21/17 TIME: 12:59 Assessment/Plan Assessment/Plan Additional Assessment/Plan 1.ATYPICAL CHEST PAIN 2.Atrial fibrillation rate controlled 3. Coronary artery disease 4. Abnormal electrocardiogram 5. Hypertension A. fib rate controlled BP controlled Continue Metoprolol and digoxin Continue Diltiazem Continue Benazepril and Norvasc Continue Heparin Scheduled for Cardiac cath Monday Consultation Date/Type/Reason Admit Date/Time January 18, 2017 at 20:15 Constitutional: no complaints Psychological: nl mood/affect Past Surgical History Past Surgical Hx: no surgical history Social History Alcohol Use: none Smoking Status: Never smoker Drug Use: none Exam/Review of Systems Vital Signs Vitals Vital Signs Date Time Temp Pulse Resp B/P Pulse Ox O2 Delivery O2 Flow Rate FiO2 01/21/17 12:21 90 01/21/17 11:55 98.7 16 123/79 93 01/19/17 20:00 Room Air Intake and Output 01/20/17 01/20/17 01/21/17 14:59 22:59 06:59 Intake Total 800 ml 600 ml Balance 800 ml 600 ml Exam Constitutional: alert, oriented Psych: no complaints Respiratory: clear to auscultation Cardiovascular: irregular rhythm Gastrointestinal: nl liver, spleen, non-tender, soft Extremities: normal pulses Results Result Diagram: 01/21/17 0715 01/21/17 0715 Results 24 hrs Laboratory Tests Test 01/21/17 07:15 White Blood Count 6.2 Red Blood Count 4.69 Hemoglobin 14.8 Hematocrit 43.6 Mean Corpuscular Volume 93.0 Mean Corpuscular Hemoglobin 31.6 Mean Corpuscular Hemoglobin Concent 33.9 Red Cell Distribution Width 12.3 Platelet Count 154 Mean Platelet Volume 10.2 Neutrophils % 33.6 L Lymphocytes % 54.9 H Monocytes % 7.2 Eosinophils % 3.5 Basophils % 0.6 Nucleated Red Blood Cells % 0.0 Neutrophils # 2.1 Lymphocytes # 3.4 H Monocytes # 0.5 Eosinophils # 0.2 Basophils # 0.0 Nucleated Red Blood Cells # 0.0 Sodium Level 140 Potassium Level 3.9 Chloride Level 103 Carbon Dioxide Level 28 Anion Gap 13 Blood Urea Nitrogen 9 Creatinine 0.63 Glucose Level 128 Hemoglobin A1c 7.3 H Calcium Level 9.4 Phosphorus Level 4.2 Magnesium Level 1.8 Triglycerides Level 170 H Cholesterol Level 146 LDL Cholesterol, Calculated 77 HDL Cholesterol 35 Cholesterol/HDL Ratio 4.1 Medications Medications Current Medications Ondansetron HCl (Zofran Inj) 4 mg Q6H PRN IV NAUSEA AND/OR VOMITING; Start at 22:30 Acetaminophen (Tylenol Tab) 650 mg Q6H PRN PO PAIN LEVEL 1-3 OR FEVER; Start at 22:30 Famotidine (Pepcid Iv) 20 mg Q12 IV Last administered on 01/21/17 08:59; Admin Dose 20 MG; Start 01/18/17 at 22:30 Aspirin (Halfprin) 81 mg DAILY PO Last administered on 01/21/17 09:00; Admin Dose 81 MG; Start 01/19/17 at 09:00 Nitroglycerin (Nitroglycerin ([place])) 1 spray Q5M PRN TL CHEST PAIN; Start at 23:00 Enoxaparin Sodium (Lovenox) 80 mg Q12 SC Last administered on 01/21/17 09:34; Admin Dose 80 MG; Start 01/19/17 at 09:00 Benazepril HCl (Lotensin) 20 mg DAILY PO Last administered on 01/21/17 09:01; Admin Dose 20 MG; Start 01/19/17 at 09:00 Metoprolol Tartrate (Lopressor) 50 mg BID PO Last administered on 01/21/17 09: 00; Admin Dose 50 MG; Start 01/19/17 at 21:00 Zolpidem Tartrate (Ambien) 5 mg HS PRN PO INSOMNIA Last administered on 20:59; Admin Dose 5 MG; Start 01/19/17 at 21:00 Amlodipine Besylate (Norvasc) 2.5 mg DAILY PO Last administered on 01/21/17 09 :00; Admin Dose 2.5 MG; Start 01/21/17 at 09:00 Digoxin (Digoxin) 0.125 mg DAILY@13 PO Last administered on 01/21/17 12:43; Admin Dose 0.125 MG; Start 01/21/17 at 13:00 Metoprolol Tartrate (Lopressor) 5 mg Q4H PRN IV Heart Rate >110; Start at 21:00 Diltiazem HCl (Cardizem Cd) 120 mg BID PO Last administered on 01/21/17t 09:01 ; Admin Dose 120 MG; Start 01/20/17 at 21:00 RADHA VIZCAINO M.D. January 21, 2017 13:02
[2017-01-21] MEDS: SENNA TAB PO PRN (16:24)
[2017-01-21] MEDS: ZOLPIDEM 5 MG TAB PO PRN (22:39)
[2017-01-22] VITALS (13 sets, daily range): BP systolic 118–141; BP diastolic 77–89; PULSE 68–118; RESP 16–20
[2017-01-22] MEDS: SENNA TAB PO PRN (08:36)
[2017-01-22] MEDS: FAMOTIDINE 20 MG INJ IV SCH (08:36)
[2017-01-22] MEDS: BENAZEPRIL 20 MG TAB PO SCH (08:52)
[2017-01-22] MEDS: AMLODIPINE 2.5 MG TAB PO SCH (08:52)
[2017-01-22] MEDS: ASPIRIN (EC) 81 MG TAB PO SCH (08:52)
[2017-01-22] MEDS: DILTIAZEM (CD) 120 MG CAP PO SCH ×2 (08:53→21:08)
[2017-01-22] MEDS: METOPROLOL 25 MG TAB PO SCH ×2 (08:53→21:17)
[2017-01-22] MEDS: ENOXAPARIN 80 MG/0.8 ML SYG SC SCH ×2 (08:59→21:11)
--- NOTE | 2017-01-22 10:13 | CONS ---
Date/Time of Note Date/Time of Note DATE: 01/22/17 TIME: 10:12 Assessment/Plan Assessment/Plan Additional Assessment/Plan 1.ATYPICAL CHEST PAIN 2.Atrial fibrillation rate controlled 3. Coronary artery disease 4. Abnormal electrocardiogram 5. Hypertension A. fib rate controlled BP controlled Continue Metoprolol and digoxin Continue Diltiazem Continue Benazepril and Norvasc Continue Heparin Scheduled for Cardiac cath Monday, Keep NPO past [place] Consultation Date/Type/Reason Admit Date/Time January 18, 2017 at 20:15 Initial Consult Date Type of Consultation: Cardiology Referring Provider: JOHNIE FREEMAN Exam/Review of Systems Vital Signs Vitals Vital Signs Date Time Temp Pulse Resp B/P Pulse Ox O2 Delivery O2 Flow Rate FiO2 01/22/17 08:06 79 01/22/17 07:48 98.1 16 133/87 91 01/19/17 20:00 Room Air Intake and Output 01/21/17 01/21/17 01/22/17 15:00 23:00 07:00 Intake Total 1020 ml 240 ml Balance 1020 ml 240 ml Exam Constitutional: alert, oriented Psych: no complaints Respiratory: clear to auscultation Cardiovascular: irregular rhythm Gastrointestinal: nl liver, spleen, non-tender, soft Extremities: normal pulses Results Result Diagram: 01/21/17 0715 01/21/1715 Medications Medications Current Medications Ondansetron HCl (Zofran Inj) 4 mg Q6H PRN IV NAUSEA AND/OR VOMITING; Start at 22:30 Acetaminophen (Tylenol Tab) 650 mg Q6H PRN PO PAIN LEVEL 1-3 OR FEVER; Start at 22:30 Famotidine (Pepcid Iv) 20 mg Q12 IV Last administered on 01/22/17 08:36; Admin Dose 20 MG; Start 01/18/17 at 22:30 Aspirin (Halfprin) 81 mg DAILY PO Last administered on 01/22/17 08:52; Admin Dose 81 MG; Start 01/19/17 at 09:00 Nitroglycerin (Nitroglycerin ([place])) 1 spray Q5M PRN TL CHEST PAIN; Start at 23:00 Enoxaparin Sodium (Lovenox) 80 mg Q12 SC Last administered on 01/22/17 08:59; Admin Dose 80 MG; Start 01/19/17 at 09:00 Benazepril HCl (Lotensin) 20 mg DAILY PO Last administered on 01/22/17 08:52; Admin Dose 20 MG; Start 01/19/17 at 09:00 Metoprolol Tartrate (Lopressor) 50 mg BID PO Last administered on 01/22/17 08: 53; Admin Dose 50 MG; Start 01/19/17 at 21:00 Zolpidem Tartrate (Ambien) 5 mg HS PRN PO INSOMNIA Last administered on 22:39; Admin Dose 5 MG; Start 01/19/17 at 21:00 Amlodipine Besylate (Norvasc) 2.5 mg DAILY PO Last administered on 01/22/17 08 :52; Admin Dose 2.5 MG; Start 01/21/17 at 09:00 Digoxin (Digoxin) 0.125 mg DAILY@13 PO Last administered on 01/21/17 12:43; Admin Dose 0.125 MG; Start 01/21/17 at 13:00 Metoprolol Tartrate (Lopressor) 5 mg Q4H PRN IV Heart Rate >110; Start at 21:00 Diltiazem HCl (Cardizem Cd) 120 mg BID PO Last administered on 01/22/17 08:53 ; Admin Dose 120 MG; Start 01/20/17 at 21:00 Senna (Senokot) 1 tab BID PRN PO CONSTIPATION Last administered on 01/22/17 08 :36; Admin Dose 1 TAB; Start 01/21/17 at 16:30 RADHA VIZCAINO M.D. January 22, 2017 10:13
--- NOTE | 2017-01-22 10:33 | PN ---
Date/Time of Note Date/Time of Note DATE: 01/22/17 TIME: 10:32 Assessment/Plan VTE Prophylaxis VTE Prophylaxis Intervention: LMWH Lines/Catheters IV [facility] Urinary Cath still in place: No Assessment/Plan Chief Complaint/Hosp Course 1. Atrial fibrillation with rapid ventricular response. Currently, rate controlled. Continue beta blockers. The patient on therapeutic anticoagulation for stroke prophylaxis. 2. Essential hypertension. Currently on antihypertensives. Blood pressure well controlled. 3. Coronary artery disease with known obstructing lesion for left heart catheterization in [place]. Continue anticoagulation. 4. Ischemic cardiomyopathy. Ejection fraction 40-45%. Continue beta-blockers and CARSON inhibitors. 5. Type 2 diabetes mellitus. Will start the patient on sliding scale insulin, along with basal insulin Lantus insulin. 6. Dyslipidemia. We will start the patient on statins. 7. Fluid, electrolytes and nutrition. Carbohydrate controlled, low cholesterol diet. 8. Deep venous thrombosis prophylaxis. On therapeutic anticoagulation. 9. Gastrointestinal prophylaxis. H2 receptor blockers. PLAN: 1. Continue telemetry monitoring. 2. Start the patient on sliding scale insulin. Start statins. 3. Await left heart catheterization scheduled for 01/23/2027. The case and management of this patient was fully discussed with Dr. Taveras. Problems: Subjective 24 Hr Interval Summary Free Text/Dictation Denies any chest pain. Exam/Review of Systems Vital Signs Vitals Vital Signs Date Time Temp Pulse Resp B/P Pulse Ox O2 Delivery O2 Flow Rate FiO2 01/22/17 08:06 79 01/22/17 07:48 98.1 16 133/87 91 01/19/17 20:00 Room Air Intake and Output 01/21/17 01/21/17 01/22/17 15:00 23:00 07:00 Intake Total 1020 ml 240 ml Balance 1020 ml 240 ml Exam GENERAL: This is an obese female lying in bed in no apparent distress. HEENT: Head normocephalic and atraumatic. Eyes: Anicteric sclerae. Conjunctivae clear. ENT: Nasal septum is midline. Oral mucosa is moist. NECK: Supple. No JVD noticed. RESPIRATORY: Bilaterally clear to auscultation. No adventitious breath sounds heard. No use of accessory muscles of respiration. CARDIAC: Irregularly irregular rhythm. S1 and S2 heard. ABDOMEN: Soft, nontender and nondistended. Bowel sounds positive in all 4 quadrants. GENITOURINARY: Deferred. EXTREMITIES: No cyanosis, no clubbing, no edema. Peripheral pulses palpable. SKIN: The patient is awake, alert and oriented. Cranial nerves are grossly intact. Results Result Diagram: 01/21/17 0715 01/21/17 0715 Medications Medications Current Medications Ondansetron HCl (Zofran Inj) 4 mg Q6H PRN IV NAUSEA AND/OR VOMITING; Start at 22:30 Acetaminophen (Tylenol Tab) 650 mg Q6H PRN PO PAIN LEVEL 1-3 OR FEVER; Start at 22:30 Famotidine (Pepcid Iv) 20 mg Q12 IV Last administered on 01/22/17 08:36; Admin Dose 20 MG; Start 01/18/17 at 22:30 Aspirin (Halfprin) 81 mg DAILY PO Last administered on 01/22/17 08:52; Admin Dose 81 MG; Start 01/19/17 at 09:00 Nitroglycerin (Nitroglycerin ([place])) 1 spray Q5M PRN TL CHEST PAIN; Start at 23:00 Enoxaparin Sodium (Lovenox) 80 mg Q12 SC Last administered on 01/22/17 08:59; Admin Dose 80 MG; Start 01/19/17 at 09:00 Benazepril HCl (Lotensin) 20 mg DAILY PO Last administered on 01/22/17 08:52; Admin Dose 20 MG; Start 01/19/17 at 09:00 Metoprolol Tartrate (Lopressor) 50 mg BID PO Last administered on 01/22/17 08: 53; Admin Dose 50 MG; Start 01/19/17 at 21:00 Zolpidem Tartrate (Ambien) 5 mg HS PRN PO INSOMNIA Last administered on 22:39; Admin Dose 5 MG; Start 01/19/17 at 21:00 Amlodipine Besylate (Norvasc) 2.5 mg DAILY PO Last administered on 01/22/17 08 :52; Admin Dose 2.5 MG; Start 01/21/17 at 09:00 Digoxin (Digoxin) 0.125 mg DAILY@13 PO Last administered on 01/21/17 12:43; Admin Dose 0.125 MG; Start 01/21/17 at 13:00 Metoprolol Tartrate (Lopressor) 5 mg Q4H PRN IV Heart Rate >110; Start at 21:00 Diltiazem HCl (Cardizem Cd) 120 mg BID PO Last administered on 01/22/17 08:53 ; Admin Dose 120 MG; Start 01/20/17 at 21:00 Senna (Senokot) 1 tab BID PRN PO CONSTIPATION Last administered on 01/22/17 08 :36; Admin Dose 1 TAB; Start 01/21/17 at 16:30 ASHWINI KAM NP January 22, 2017 10:33 ASHWINI KAM NP January 22, 2017 10:33
[2017-01-22] MEDS ORDERED: GLUCOSE GEL 15 GRAM TUBE BUCCAL PRN (11:00)
[2017-01-22] MEDS ORDERED: GLUCAGON 1 MG INJ IM PRN (11:00)
[2017-01-22] MEDS ORDERED: DEXTROSE 50% 50 ML SYRINGE IV PRN ×2 (11:00)
[2017-01-22] MEDS ORDERED: GLUCOSE GEL 15 GRAM TUBE PO PRN ×2 (11:00)
[2017-01-22] MEDS: INSULIN ASPART [NOVOLOG] 3 ML PEN SC SCH ×5 (12:00→21:00)
[2017-01-22] MEDS: DIGOXIN 0.125 MG TAB PO SCH (12:29)
[2017-01-22] MEDS: INSULIN GLARGINE [LANtus] 3 ML PEN SC SCH (20:00)
[2017-01-22] MEDS: ATORVASTATIN 40 MG TAB PO SCH (21:07)
[2017-01-22] MEDS: FAMOTIDINE 20 MG TAB PO SCH (21:07)
[2017-01-23] VITALS (17 sets, daily range): BP systolic 108–145; BP diastolic 54–99; PULSE 48–88; RESP 16–25
[2017-01-23] MEDS: ACCU-CHEK XX SCH (02:01)
[2017-01-23] MEDS: ENOXAPARIN 80 MG/0.8 ML SYG SC SCH ×2 (07:48→20:32)
[2017-01-23] MEDS: INSULIN ASPART [NOVOLOG] 3 ML PEN SC SCH ×7 (08:00→20:21)
[2017-01-23 08:05] LABS: ADD SCAN DIFF NO
[2017-01-23 08:17] LABS: BASOPHIL # 0.1 10^3/ul (0.0-0.1); BASOPHILS % 0.8 % (0.0-2.0); EOSINOPHILS # 0.2 10^3/ul (0.0-0.5); EOSINOPHILS % 3.5 % (0.0-7.0); HEMATOCRIT 43.2 % (37.0-47.0); HEMOGLOBIN 14.6 g/dl (12.0-16.0); LYMPHOCYTES # 3.3 10^3/ul (0.8-2.9); LYMPHOCYTES % 49.9 % (15.0-51.0); MEAN CORPUSCULAR HEMOGLOBIN 31.7 pg (29.0-33.0); MEAN CORPUSCULAR HGB CONC 33.8 g/dl (32.0-37.0); MEAN CORPUSCULAR VOLUME 93.7 fl (82.0-101.0); MEAN PLATELET VOLUME 10.5 fl (7.4-10.4); MONOCYTE # 0.5 10^3/ul (0.3-0.9); MONOCYTES % 7.9 % (0.0-11.0); NEUTROPHIL # 2.5 10^3/ul (1.6-7.5); NEUTROPHILS % 37.7 % (39.0-77.0); PLATELET COUNT 184 10^3/UL (140-415); RED BLOOD COUNT 4.61 10^6/ul (4.20-5.40); RED CELL DISTRIBUTION WIDTH 12.5 % (11.5-14.5); WHITE BLOOD COUNT 6.6 10^3/ul (4.8-10.8)
[2017-01-23 08:41] LABS: POTASSIUM 4.1 mmol/L (3.5-5.1)
[2017-01-23 08:44] LABS: CREATININE 0.65 mg/dl (0.44-1.00)
[2017-01-23 08:45] LABS: CALCIUM 9.7 mg/dl (8.4-10.2)
[2017-01-23 08:50] LABS: MAGNESIUM 1.8 mg/dl (1.7-2.5); PHOSPHORUS 4.2 mg/dl (2.5-4.9)
[2017-01-23] MEDS: ASPIRIN (EC) 81 MG TAB PO SCH (09:18)
[2017-01-23] MEDS: AMLODIPINE 2.5 MG TAB PO SCH (09:18)
[2017-01-23] MEDS: BENAZEPRIL 20 MG TAB PO SCH (09:19)
[2017-01-23] MEDS: FAMOTIDINE 20 MG TAB PO SCH ×2 (09:19→20:12)
[2017-01-23] MEDS: METOPROLOL 25 MG TAB PO SCH ×2 (09:19→20:13)
[2017-01-23] MEDS: DILTIAZEM (CD) 120 MG CAP PO SCH ×2 (09:21→20:12)
--- NOTE | 2017-01-23 10:36 | PN ---
Date/Time of Note Date/Time of Note DATE: 01/23/17 TIME: 10:34 Assessment/Plan VTE Prophylaxis VTE Prophylaxis Intervention: LMWH Lines/Catheters IV [facility] Urinary Cath still in place: No Assessment/Plan Chief Complaint/Hosp Course 1. Atrial fibrillation with rapid ventricular response. Currently, rate controlled. Continue beta blockers. The patient on therapeutic anticoagulation for stroke prophylaxis. 2. Essential hypertension. Currently on antihypertensives. Blood pressure well controlled. 3. Coronary artery disease with known obstructing lesion for left heart catheterization in [place]. Continue anticoagulation. Plan for left heart catheterization. 4. Ischemic cardiomyopathy. Ejection fraction 40-45%. Continue beta-blockers and CARSON inhibitors. 5. Type 2 diabetes mellitus. Continue sliding scale insulin, along with basal insulin Lantus insulin. 6. Dyslipidemia. We will start the patient on statins. 7. Fluid, electrolytes and nutrition. Carbohydrate controlled, low cholesterol diet. 8. Deep venous thrombosis prophylaxis. On therapeutic anticoagulation. 9. Gastrointestinal prophylaxis. H2 receptor blockers. PLAN: 1. Continue telemetry monitoring. 2. Await further cardiology recommendations. The case and management of this patient was fully discussed with Dr. Odonnell.. Problems: Subjective 24 Hr Interval Summary Free Text/Dictation Denies any chest pain. Exam/Review of Systems Vital Signs Vitals Vital Signs Date Time Temp Pulse Resp B/P Pulse Ox O2 Delivery O2 Flow Rate FiO2 01/23/17 08:21 69 01/23/17 07:25 98.3 18 129/77 95 01/22/17 16:00 Room Air Intake and Output 01/22/17 01/22/17 01/23/17 15:00 23:00 07:00 Intake Total 900 ml 200 ml Balance 900 ml 200 ml Exam GENERAL: This is an obese female lying in bed in no apparent distress. HEENT: Head normocephalic and atraumatic. Eyes: Anicteric sclerae. Conjunctivae clear. ENT: Nasal septum is midline. Oral mucosa is moist. NECK: Supple. No JVD noticed. RESPIRATORY: Bilaterally clear to auscultation. No adventitious breath sounds heard. No use of accessory muscles of respiration. CARDIAC: Irregularly irregular rhythm. S1 and S2 heard. ABDOMEN: Soft, nontender and nondistended. Bowel sounds positive in all 4 quadrants. GENITOURINARY: Deferred. EXTREMITIES: No cyanosis, no clubbing, no edema. Peripheral pulses palpable. SKIN: The patient is awake, alert and oriented. Cranial nerves are grossly intact. Results Result Diagram: 01/23/17 0709 01/23/17 0709 Results 24 hrs Laboratory Tests Test 01/22/17 12:30 01/22/17 17:27 01/22/17 21:06 01/23/17 07:09 Bedside Glucose 142 125 196 White Blood Count 6.6 Red Blood Count 4.61 Hemoglobin 14.6 Hematocrit 43.2 Mean Corpuscular Volume 93.7 Mean Corpuscular Hemoglobin 31.7 Mean Corpuscular Hemoglobin Concent 33.8 Red Cell Distribution Width 12.5 Platelet Count 184 Mean Platelet Volume 10.5 H Neutrophils % 37.7 L Lymphocytes % 49.9 Monocytes % 7.9 Eosinophils % 3.5 Basophils % 0.8 Nucleated Red Blood Cells % 0.0 Neutrophils # 2.5 Lymphocytes # 3.3 H Monocytes # 0.5 Eosinophils # 0.2 Basophils # 0.1 Nucleated Red Blood Cells # 0.0 Sodium Level 146 H Potassium Level 4.1 Chloride Level 105 Carbon Dioxide Level 29 Anion Gap 16 Blood Urea Nitrogen 9 Creatinine 0.65 Glucose Level 136 Calcium Level 9.7 Phosphorus Level 4.2 Magnesium Level 1.8 Test 01/23/17 07:55 Bedside Glucose 131 Medications Medications Current Medications Ondansetron HCl (Zofran Inj) 4 mg Q6H PRN IV NAUSEA AND/OR VOMITING; Start at 22:30 Acetaminophen (Tylenol Tab) 650 mg Q6H PRN PO PAIN LEVEL 1-3 OR FEVER; Start at 22:30 Aspirin (Halfprin) 81 mg DAILY PO Last administered on 01/23/17 09:18; Admin Dose 81 MG; Start 01/19/17 at 09:00 Nitroglycerin (Nitroglycerin (Guys)) 1 spray Q5M PRN TL CHEST PAIN; Start at 23:00 Enoxaparin Sodium (Lovenox) 80 mg Q12 SC Last administered on 01/22/17 21:11; Admin Dose 80 MG; Start 01/19/17 at 09:00 Benazepril HCl (Lotensin) 20 mg DAILY PO Last administered on 01/23/17 09:19; Admin Dose 20 MG; Start 01/19/17 at 09:00 Metoprolol Tartrate (Lopressor) 50 mg BID PO Last administered on 01/23/17 09: 19; Admin Dose 50 MG; Start 01/19/17 at 21:00 Zolpidem Tartrate (Ambien) 5 mg HS PRN PO INSOMNIA Last administered on 22:39; Admin Dose 5 MG; Start 01/19/17 at 21:00 Amlodipine Besylate (Norvasc) 2.5 mg DAILY PO Last administered on 01/23/17 09 :18; Admin Dose 2.5 MG; Start 01/21/17 at 09:00 Digoxin (Digoxin) 0.125 mg DAILY@13 PO Last administered on 01/22/17 12:29; Admin Dose 0.125 MG; Start 01/21/17 at 13:00 Metoprolol Tartrate (Lopressor) 5 mg Q4H PRN IV Heart Rate >110; Start at 21:00 Diltiazem HCl (Cardizem Cd) 120 mg BID PO Last administered on 01/23/17 09:21 ; Admin Dose 120 MG; Start 01/20/17 at 21:00 Senna (Senokot) 1 tab BID PRN PO CONSTIPATION Last administered on 01/22/17 08 :36; Admin Dose 1 TAB; Start 01/21/17 at 16:30 Atorvastatin Calcium (Lipitor) 40 mg HS PO Last administered on 01/22/17 21:07 ; Admin Dose 40 MG; Start 01/22/17 at 21:00 Insulin Glargine (Lantus) 8 unit DAILY@20 SC ; Start 01/22/17 at 20:00 Diagnostic Test (Pha) (Accu-Chek) 1 ea 02 XX Last administered on 01/23/17 02: 01; Admin Dose 1 EA; Start 01/23/17 at 02:00 Miscellaneous Information 1 ea NOTE XX ; Start 01/22/17 at 11:00 Glucose (Glutose) 15 gm Q15M PRN PO DECREASED GLUCOSE; Start 01/22/17 at 11:00 Glucose (Glutose) 22.5 gm Q15M PRN PO DECREASED GLUCOSE; Start 01/22/17 at 11: 00 Dextrose (D50w Syringe) 25 ml Q15M PRN IV DECREASED GLUCOSE; Start 01/22/17 at 11:00 Dextrose (D50w Syringe) 50 ml Q15M PRN IV DECREASED GLUCOSE; Start 01/22/17 at 11:00 Glucagon (Glucagen) 1 mg Q15M PRN IM DECREASED GLUCOSE; Start 01/22/17 at 11:00 Glucose (Glutose) 15 gm Q15M PRN BUCCAL DECREASED GLUCOSE; Start 01/22/17 at 11 :00 Famotidine (Pepcid) 20 mg BID PO Last administered on 01/23/17t 09:19; Admin Dose 20 MG; Start 01/22/17 at 21:00 ASHWINI KAM NP January 23, 2017 10:36
[2017-01-23] MEDS ORDERED: HEPARIN 1000 UNITS/ML 10 ML INJ ONE (11:47)
[2017-01-23] MEDS ORDERED: VERAPAMIL 5 MG INJ ONE (11:47)
[2017-01-23] MEDS ORDERED: LIDOCAINE 1% (MDV) 20 ML INJ ONE (11:47)
[2017-01-23] MEDS ORDERED: IODIXANOL LOCM 100 ML BTL ONE (11:47)
[2017-01-23] MEDS ORDERED: FENTAnyl 50 MCG/ML VIAL ONE (11:47)
[2017-01-23] MEDS ORDERED: MIDAZOLAM 1 MG/ML 2 ML INJ ONE (11:47)
[2017-01-23] MEDS ORDERED: NITROGLYCERIN (IC) 100 MCG/ML INJ ONE (11:48)
[2017-01-23] MEDS ORDERED: SOD CHLORIDE 0.9% 500 ML ONE (12:32)
[2017-01-23] MEDS ORDERED: BIVALIRUDIN 250MG /NS 50 ML 50 ML IVPB ONE (12:32)
[2017-01-23] MEDS ORDERED: IOHEXOL 350MG/ML 50 ML BTL ONE (12:38)
[2017-01-23] MEDS ORDERED: ASPIRIN 325 MG TAB ONE (13:22)
[2017-01-23] MEDS ORDERED: CLOPIDOGREL 300 MG TAB ONE ×2 (13:23→13:26)
[2017-01-23] MEDS ORDERED: ONDANSETRON 4 MG INJ IV PRN (14:00)
[2017-01-23] MEDS ORDERED: ZOLPIDEM 5 MG TAB PO PRN (14:00)
[2017-01-23] MEDS ORDERED: ACETAMINOPHEN 325 MG TAB PO PRN (14:00)
[2017-01-23] MEDS ORDERED: OXYCODONE/ACETAMINOPHEN (5/325) TAB PO PRN (14:00)
[2017-01-23] MEDS ORDERED: morphine 2 MG INJ IV PRN (14:00)
[2017-01-23] MEDS ORDERED: AL HYDROX/MG HYDROX/SIMETH 30 ML CUP PO PRN (14:00)
--- NOTE | 2017-01-23 14:00 | CONS ---
Date/Time of Note Date/Time of Note DATE: 01/23/17 TIME: 13:56 Assessment/Plan Assessment/Plan Chief Complaint/Hosp Course IMPRESSION: 1. Atrial fibrillation with rapid ventricular response.-now improved HR s/p digoxin load 2. Chest pain.-negative troponin x 3 even after rapid AF 3. Coronary artery disease with known obstructive lesions by left heart catheterization recently in [place]. 4. Abnormal electrocardiogram with diffuse nonspecific ST-T abnormalities, assess for acute coronary syndrome. 5. Hypertension, somewhat labile. 6. Cad now POD#0 s/p PTCA/stent x 1 to LAD mid with DELORIS and PTCA alone to distal LCX Recc: -Tele -Continue BB/digoxin/norvasc/ACEI -Now continue asa 325/plavix 75 mg daily and will discharge on plavix 75 mg daily and eliquis or xarelto -If stable D/C planning 01/24/17 with sharad outpatient f/u Problems: Consultation Date/Type/Reason Admit Date/Time January 18, 2017 at 20:15 Initial Consult Date 01/19/17 Type of Consultation: Cardiology Reason for Consultation angina/cad/AF Referring Provider: JOHNIE FREEMAN Exam/Review of Systems Vital Signs Vitals Vital Signs Date Time Temp Pulse Resp B/P Pulse Ox O2 Delivery O2 Flow Rate FiO2 01/23/17 11:19 98.3 72 18 122/82 96 01/22/17 16:00 Room Air Intake and Output 01/22/17 01/22/17 01/23/17 15:00 23:00 07:00 Intake Total 900 ml 200 ml Balance 900 ml 200 ml Exam Review of Systems: CONSTITUTIONAL: No fevers, chills. PULMONARY: No sob CARDIOVASCULAR: Intermittent chest pain GASTROINTESTINAL: No nausea/vomiting. GENITOURINARY: No hematuria/dysuria. MUSCULOSKELETAL: No myagias/arthalgias. PSYCHIATRIC: The patient denies depression. NEUROLOGIC: No weakness Constitutional: alert Psych: no complaints Head: normocephalic ENMT: mucosa pink and moist Neck: jvd (9 cm water), supple Respiratory: diminished breath sounds (at bases/B) Cardiovascular: regular rate and rhythm Gastrointestinal: non-tender, soft Musculoskeletal: muscle tone (normal) Extremities: edema (none) Neurological: other (No focal deficits) Results Result Diagram: 01/23/17 0709 01/23/17 0709 Results 24 hrs Laboratory Tests Test 01/22/17 17:27 01/22/17 21:06 01/23/17 07:09 01/23/17 07:55 Bedside Glucose 125 196 131 White Blood Count 6.6 Red Blood Count 4.61 Hemoglobin 14.6 Hematocrit 43.2 Mean Corpuscular Volume 93.7 Mean Corpuscular Hemoglobin 31.7 Mean Corpuscular Hemoglobin Concent 33.8 Red Cell Distribution Width 12.5 Platelet Count 184 Mean Platelet Volume 10.5 H Neutrophils % 37.7 L Lymphocytes % 49.9 Monocytes % 7.9 Eosinophils % 3.5 Basophils % 0.8 Nucleated Red Blood Cells % 0.0 Neutrophils # 2.5 Lymphocytes # 3.3 H Monocytes # 0.5 Eosinophils # 0.2 Basophils # 0.1 Nucleated Red Blood Cells # 0.0 Sodium Level 146 H Potassium Level 4.1 Chloride Level 105 Carbon Dioxide Level 29 Anion Gap 16 Blood Urea Nitrogen 9 Creatinine 0.65 Glucose Level 136 Calcium Level 9.7 Phosphorus Level 4.2 Magnesium Level 1.8 Medications Medications Current Medications Ondansetron HCl (Zofran Inj) 4 mg Q6H PRN IV NAUSEA AND/OR VOMITING; Start at 22:30 Acetaminophen (Tylenol Tab) 650 mg Q6H PRN PO PAIN LEVEL 1-3 OR FEVER; Start at 22:30 Aspirin (Halfprin) 81 mg DAILY PO Last administered on 01/23/17 09:18; Admin Dose 81 MG; Start 01/19/17 at 09:00 Nitroglycerin (Nitroglycerin (Fertile)) 1 spray Q5M PRN TL CHEST PAIN; Start at 23:00 Enoxaparin Sodium (Lovenox) 80 mg Q12 SC Last administered on 01/22/17 21:11; Admin Dose 80 MG; Start 01/19/17 at 09:00 Benazepril HCl (Lotensin) 20 mg DAILY PO Last administered on 01/23/17 09:19; Admin Dose 20 MG; Start 01/19/17 at 09:00 Metoprolol Tartrate (Lopressor) 50 mg BID PO Last administered on 01/23/17 09: 19; Admin Dose 50 MG; Start 01/19/17 at 21:00 Zolpidem Tartrate (Ambien) 5 mg HS PRN PO INSOMNIA Last administered on 22:39; Admin Dose 5 MG; Start 01/19/17 at 21:00 Amlodipine Besylate (Norvasc) 2.5 mg DAILY PO Last administered on 01/23/17 09 :18; Admin Dose 2.5 MG; Start 01/21/17 at 09:00 Digoxin (Digoxin) 0.125 mg DAILY@13 PO Last administered on 01/22/17 12:29; Admin Dose 0.125 MG; Start 01/21/17 at 13:00 Metoprolol Tartrate (Lopressor) 5 mg Q4H PRN IV Heart Rate >110; Start at 21:00 Diltiazem HCl (Cardizem Cd) 120 mg BID PO Last administered on 01/23/17 09:21 ; Admin Dose 120 MG; Start 01/20/17 at 21:00 Senna (Senokot) 1 tab BID PRN PO CONSTIPATION Last administered on 01/22/17 08 :36; Admin Dose 1 TAB; Start 01/21/17 at 16:30 Atorvastatin Calcium (Lipitor) 40 mg HS PO Last administered on 01/22/17 21:07 ; Admin Dose 40 MG; Start 01/22/17 at 21:00 Insulin Glargine (Lantus) 8 unit DAILY@20 SC ; Start 01/22/17 at 20:00 Diagnostic Test (Pha) (Accu-Chek) 1 ea 02 XX Last administered on 01/23/17 02: 01; Admin Dose 1 EA; Start 01/23/17 at 02:00 Miscellaneous Information 1 ea NOTE XX ; Start 01/22/17 at 11:00 Glucose (Glutose) 15 gm Q15M PRN PO DECREASED GLUCOSE; Start 01/22/17 at 11:00 Glucose (Glutose) 22.5 gm Q15M PRN PO DECREASED GLUCOSE; Start 01/22/17 at 11: 00 Dextrose (D50w Syringe) 25 ml Q15M PRN IV DECREASED GLUCOSE; Start 01/22/17 at 11:00 Dextrose (D50w Syringe) 50 ml Q15M PRN IV DECREASED GLUCOSE; Start 01/22/17 at 11:00 Glucagon (Glucagen) 1 mg Q15M PRN IM DECREASED GLUCOSE; Start 01/22/17 at 11:00 Glucose (Glutose) 15 gm Q15M PRN BUCCAL DECREASED GLUCOSE; Start 01/22/17 at 11 :00 Famotidine (Pepcid) 20 mg BID PO Last administered on 01/23/17t 09:19; Admin Dose 20 MG; Start 01/22/17 at 21:00 JOSSY DODD January 23, 2017 14:00
[2017-01-23] MEDS: DIGOXIN 0.125 MG TAB PO SCH (14:40)
[2017-01-23] MEDS: SOD CHLORIDE 0.9% 1,000 ML IV SCH ×2 (14:50→20:32)
--- NOTE | 2017-01-23 19:03 | CARRPT ---
DATE OF PROCEDURE: 01/23/2017 TYPE OF PROCEDURE: 1. Left heart catheterization. 2. Coronary angiography. 3. Left ventriculogram. 4. Percutaneous transluminal coronary angioplasty with placement of Synergy drug-eluting stent x1, 2.75 x 38 mm to mid left anterior descending. 5. Percutaneous transluminal coronary angioplasty alone to distal circumflex, high-grade stenosis. ATTENDING PHYSICIAN: Jossy Baeza MD REFERRING PHYSICIAN: Dr. Tanvir Everett and Dr. Taveras from the hospitalist service. INDICATION: Unstable angina. TYPE OF ANESTHESIA: Conscious and local. BRIEF HISTORY: Ms. Miller is a 61-year-old female with history of hypertension, dyslipidemia, nadine nary artery disease, status post prior diagnostic heart catheterization in [place] and was told she n eeded to have bypass surgery. The patient refused surgery, presented here to [facility] after seeing her primary pattern puncher, Dr. Tanvir Everett who referred her here. The patient at that time was in atrial fibrillation with rapid ventricular response and therefore we rate controll ed the patient's atrial fibrillation and systemic anticoagulation and now has been brought back to [facility] cardiac catheterization lab in order to assess the patient's coronary vasculature and ability to do PTCA and stent placement. PROCEDURE: After informed consent was obtained, the patient was brought to the [facility] cardiac catheterization lab where her right radial area was prepped and draped in the usual sterile fashion. Lidocaine 2% infiltrated into the radial area in order to achieve adequate local anesthesia. With modified Seldinger technique, a radial artery was cannulated and a 6-Persian arteri al sheath was placed. A 6-Persian JR4 catheter was used in attempt to cannulate the right coronary o stium unsuccessfully. Subsequently, a Christian right posterior was able to image the patient right coronary artery, nonselective revealing a small nondominant vessel with diffuse disease. Subsequent ly, at this time, the Christian right posterior was removed and a XB LAD 3 was used to cannulate the left main coronary ostium. After multiple views of with contrast injection, a 0.014 balanced guidew david was passed distally to the LAD. A 2.0 x 12 mm balloon was used to predilate along the length of the lesion at 14 to 16 atmospheres x3. This was removed and the lesion was stented with a 2.75 x 3 8 mm drug-eluting stent deployed at 16 atmospheres, post-dilated with the stent delivery system up t o 18 atmospheres. Followup angiogram was obtained revealing excellent result, deployment of stent, LIOR 3 flow throughout the vessel, no signs of complication including perforation or dissection and there was one area with a lesion that had a waist in it. Subsequently a 3.0 x 12 mm noncompliant ba lloon was used to further post-dilate this area up to 20 atmospheres x2. The noncompliant balloon w as removed. Followup angiogram was obtained revealing excellent result for this. Post-dilatation, no signs of complication including perforation or dissection and no residual waist noted. Subsequen tly, at this time, the wire was pulled back and was repositioned at distal and circumflex which had a very high grade stenosis, distal portion up to approximately 99%. Subsequently, after placing a w david to this region, a 2.0 x 12 mm balloon was used to perform balloon angioplasty upon this area up to 14 atmospheres x2. The balloon was removed. Followup angiogram was obtained revealing excellent result for this balloon angioplasty and subsequent given small caliber of these vessels, no stent w as placed. The balloon was removed. Patient was given IC nitroglycerin. Followup angiogram was ob tained revealing excellent result deployment of the stent and angioplasty, LIOR 3 flow throughout yaa th vessels. No signs of complication including perforation or dissection. So at this time, the int erventional guide and guidewire were removed. A 6-Persian pigtail was passed down the ascending aor ta across the aortic valve and left ventricular end-diastolic pressure measured at 20 mL of contrast and performing a left ventriculogram. The pigtail catheter was then pulled back across the aortic valve and removed. Subsequently, at this time, the patient's sheath was removed and a TR band was a pplied. There were no noted complications. FINDINGS: 1. Coronary angiography. Right coronary artery. Selective nondominant once again proximally is a sub 1.5 mm vessel has diffuse disease up to approximately 80% to 90% throughout at its proximal mid portion. The left main proximally is a 5 mm vessel with no significant stenoses. Circumflex proxim ally is a 3.5 mm vessel and at its mid portion has an approximately 40% stenosis. In the distal por tion of the circumflex AV groove, there is a 99% stenosis and then thereafter it has diffuse disease up to approximately 90% and a sub 1.5 mm portion of the vessel. The LAD proximally is a 3 mm vesse l. Shortly after its takeoff has a 70% stenosis followed by areas of tandem 70% to 80% stenosis dif fusely throughout the proximal portion. In the very distal portion of the LAD around the apex, ther e is approximately 40% stenosis. The proximal branching diagonals, sub 2 mm vessels with diffuse di sease up to approximately 80% in the mid and distal portions. Additionally, should note that the pa tient also had some proximal branching obtuse marginal which is a sub 1.5 mm vessel and has diffuse disease up to approximately 80% throughout. PTCA and stent placement: Prior to PTCA and stent placement in the LAD, the patient had diffuse vincent noses up to approximately 80%, and in the mid portion, 90%. Post-PTCA and stent placement, the makenzie ent had no residual stenosis, LIOR 3 flow throughout the vessels and a moderate step-down at the dis dick end of the stent. No signs of complication including perforation or dissection. Prior to PTCA in the circumflex, the patient had a distal 99% stenosis. Post-PTCA in this region, the patient had residual 10% to 20% stenosis and once again thereafter the vessel is a small very diffusely disease d vessel, less than 1.5 mm. TOTAL FLUOROSCOPY TIME: 16.3 minutes. TOTAL CONTRAST: 175 mL. IMPRESSION: 1. Multivessel obstructive coronary artery disease involving long tandem lesions in the proximal to mid LAD, status post successful percutaneous transluminal coronary angioplasty and stent placement x1. 2. Status post successful percutaneous transluminal coronary angioplasty to distal circumflex lesio n, proximal LAD in the very distal portion in circumflex AV groove where it is a sub 2.0 mm vessel a nd a small nondominant right with diffuse disease. 3. Successful percutaneous transluminal coronary angioplasty and stent placement x1 to mid LAD with a 2.75 x 38 mm drug-eluting stent. 4. Successful percutaneous transluminal coronary angioplasty alone to the distal circumflex. 5. Preserved left ventricular systolic function with high normal left heart filling pressures. No significant aortic stenosis by gradient. 6. 2+ to 3+ mitral regurgitation. ADDENDUM: The patient underwent a left ventriculogram that revealed EF preserved at 55%. Left vent ricular end diastolic pressure of 17 pre-LV gram. No significant aortic stenosis by gradient. 3+ m itral regurgitation. RECOMMENDATIONS: 1. Place the patient on Plavix 75 mg 1 tab p.o. daily times at least 1 year. 2. Aspirin 325 mg 1 tab p.o. daily indefinitely. 3. Maximize medical management. 4. Aggressive risk factor reduction. 5. Patient readmitted to the ICU for post-intervention observation and continued management of symp toms with possible discharge the following day. ADDENDUM: The patient had received a radial cocktail given during procedure that had 200 mcg of IC nitroglycerin, 2.5 mg of verapamil and received Angiomax bolus continuous infusion throughout the pr ocedure and received 600 mg of p.o. Plavix and 325 mg of aspirin at the completion of the procedure . Dictated By: JOSSY SUAREZ/ANNE Conf#: [id number] DID#: [id number]
[2017-01-23] MEDS: INSULIN GLARGINE [LANtus] 3 ML PEN SC SCH ×2 (20:00→20:17)
[2017-01-23] MEDS: ATORVASTATIN 40 MG TAB PO SCH (20:12)
[2017-01-24] VITALS (13 sets, daily range): BP systolic 101–133; BP diastolic 57–93; PULSE 71–98; RESP 15–24
[2017-01-24] MEDS: ACCU-CHEK XX SCH (01:36)
[2017-01-24 06:02] LABS: ADD SCAN DIFF NO
[2017-01-24 06:06] LABS: BASOPHILS % 0.5 % (0.0-2.0); EOSINOPHILS # 0.2 10^3/ul (0.0-0.5); EOSINOPHILS % 3.8 % (0.0-7.0); HEMATOCRIT 40.3 % (37.0-47.0); HEMOGLOBIN 13.8 g/dl (12.0-16.0); LYMPHOCYTES # 1.7 10^3/ul (0.8-2.9); MEAN CORPUSCULAR HEMOGLOBIN 31.7 pg (29.0-33.0); MEAN CORPUSCULAR HGB CONC 34.2 g/dl (32.0-37.0); MEAN CORPUSCULAR VOLUME 92.4 fl (82.0-101.0); MEAN PLATELET VOLUME 10.3 fl (7.4-10.4); MONOCYTE # 0.4 10^3/ul (0.3-0.9); MONOCYTES % 6.8 % (0.0-11.0); NEUTROPHIL # 3.4 10^3/ul (1.6-7.5); NEUTROPHILS % 58.6 % (39.0-77.0); PLATELET COUNT 153 10^3/UL (140-415); RED BLOOD COUNT 4.36 10^6/ul (4.20-5.40); RED CELL DISTRIBUTION WIDTH 12.7 % (11.5-14.5); WHITE BLOOD COUNT 5.7 10^3/ul (4.8-10.8)
[2017-01-24 06:35] LABS: MAGNESIUM 1.7 mg/dl (1.7-2.5); PHOSPHORUS 4.1 mg/dl (2.5-4.9)
[2017-01-24 06:37] LABS: POTASSIUM 3.8 mmol/L (3.5-5.1)
[2017-01-24 06:39] LABS: CREATININE 0.67 mg/dl (0.44-1.00)
[2017-01-24 06:46] LABS: TROPONIN-I 0.061 ng/ml (0.00-0.12)
[2017-01-24] MEDS: INSULIN ASPART [NOVOLOG] 3 ML PEN SC SCH ×4 (07:35→11:30)
[2017-01-24 07:44] LABS: CK-MB 0.65 ng/ml (0.0-2.4)
[2017-01-24] MEDS: FAMOTIDINE 20 MG TAB PO SCH (08:32)
[2017-01-24] MEDS: DILTIAZEM (CD) 120 MG CAP PO SCH (08:33)
[2017-01-24] MEDS: AMLODIPINE 2.5 MG TAB PO SCH (08:34)
[2017-01-24] MEDS: METOPROLOL 25 MG TAB PO SCH (08:34)
[2017-01-24] MEDS: BENAZEPRIL 20 MG TAB PO SCH (08:36)
[2017-01-24] MEDS: ENOXAPARIN 80 MG/0.8 ML SYG SC SCH (08:41)
[2017-01-24] MEDS ORDERED: CLOPIDOGREL 75 MG TAB PO SCH (09:00)
[2017-01-24] MEDS ORDERED: ASPIRIN (EC) 325 MG TAB PO SCH (09:00)
[2017-01-24] MEDS ORDERED: MAGNESIUM SULFATE 2 GM/50 ML 50 ML IVPB ONE (10:00)
--- NOTE | 2017-01-24 10:02 | PDOCDIS ---
Discharge Instructions DIAGNOSIS Discharge Diagnosis: CAD. A. fib with RVR. CONDITION Patient Condition: Stable HOME CARE INSTRUCTIONS: Special Diet: ADA AND CARDIAC DIET FOLLOW UP/APPOINTMENTS Appointments Tanvir Everett MD Specialty: Cardiology Office Address: [address] [place] [address] Office OTHER ORDERS: Other Orders: 1. Take medications as per prescription. Never stop taking aspirin and Plavix unless you talk to your shed workers supervisor. 2. Take a carbohydrate controlled, low-cholesterol diet. 3. Resume activities as tolerated. 4. Follow-up with Dr. Everett in 2 weeks. 5. Please call 911 or go to the nearest emergency room if you have chest pain, significant shortness of breath, sudden onset of slurred speech, sudden onset of focal weakness, or any other unusual signs/symptoms. ASHWINI KAM NP January 24, 2017 10:02
[2017-01-24] MEDS ORDERED: BENA20TA48 PO (10:09)
[2017-01-24] MEDS ORDERED: METO-448 PO (10:09)
[2017-01-24] MEDS ORDERED: ATOR40TA68 PO (10:09)
[2017-01-24] MEDS ORDERED: AMLO2.5T78 PO (10:09)
[2017-01-24] MEDS ORDERED: ASPI-664 PO (10:09)
[2017-01-24] MEDS ORDERED: DIGO125T PO (10:09)
[2017-01-24] MEDS ORDERED: CLOP75TA28 PO (10:09)
[2017-01-24] MEDS ORDERED: DILT120C77 PO (10:09)
--- NOTE | 2017-01-24 10:18 | CONS ---
Date/Time of Note Date/Time of Note DATE: 01/24/17 TIME: 10:15 Assessment/Plan Assessment/Plan Additional Assessment/Plan 1. Atrial fibrillation with rapid ventricular response.-now improved HR s/p digoxin load - better rate controlled - con't to optimize rx. 2. Chest pain.-negative troponin x 3 even after rapid AF - now s/p LHC/PCI. 3. Coronary artery disease with known obstructive lesions by left heart catheterization recently in [place] - now s/p DELORIS. 4. Abnormal electrocardiogram with diffuse nonspecific ST-T abnormalities, assess for acute coronary syndrome. 5. Hypertension, somewhat labile - con't to adjust Rx. 6. Cad now s/p PTCA/stent x 1 to LAD mid with DELORIS and PTCA alone to distal LCX - tolerate procedure well. Consultation Date/Type/Reason Admit Date/Time January 18, 2017 at 20:15 Initial Consult Date Type of Consultation: Cardiology Referring Provider: JOHNIE FREEMAN 24 HR Interval Summary Free Text/Dictation s/p PTCA/stent x 1 to LAD mid with DELORIS and PTCA alone to distal LCX - tolerate procedure well- plan for dispo. ROS: No fever, no chills, no nausea, no vomiting, no diarrhea/constipation No recent weight changes No chest pain, no PND, no orthopnea No dizziness, blurred vision No thirst, no heat or cold intolerance Exam/Review of Systems Vital Signs Vitals Vital Signs Date Time Temp Pulse Resp B/P Pulse Ox O2 Delivery O2 Flow Rate FiO2 01/24/17 09:00 83 20 116/81 100 01/24/17 08:00 98.0 01/24/17 07:00 Room Air Intake and Output 01/23/17 01/23/17 01/24/17 15:00 23:00 07:00 Intake Total 75 ml 650 ml 510 ml Output Total 400 ml Balance 75 ml 250 ml 510 ml Exam Geneal: WN/WD/NAD, AOx 3 HEENT: Unicetric/atraumatic/EOMI (follows commands) NECK: JVD elevated, no thyromegaly Lymph: no lymphadenopathy HEART: irregular with no S3, II/ systolic murmur at apex LUNGS: Coarse sounds ABD: soft, NT, ND, +BS : Intact Neuro: non focal SKIN: chronic changes EXT: trace edema Results Result Diagram: 01/24/17 0510 01/24/1710 Results 24 hrs Laboratory Tests Test 01/23/17 16:41 01/23/17 20:11 01/24/17 05:10 01/24/17 08:19 Bedside Glucose 117 137 120 White Blood Count 5.7 Red Blood Count 4.36 Hemoglobin 13.8 Hematocrit 40.3 Mean Corpuscular Volume 92.4 Mean Corpuscular Hemoglobin 31.7 Mean Corpuscular Hemoglobin Concent 34.2 Red Cell Distribution Width 12.7 Platelet Count 153 Mean Platelet Volume 10.3 Neutrophils % 58.6 Lymphocytes % 30.0 Monocytes % 6.8 Eosinophils % 3.8 Basophils % 0.5 Nucleated Red Blood Cells % 0.0 Neutrophils # 3.4 Lymphocytes # 1.7 Monocytes # 0.4 Eosinophils # 0.2 Basophils # 0.0 Nucleated Red Blood Cells # 0.0 Sodium Level 142 Potassium Level 3.8 Chloride Level 106 Carbon Dioxide Level 26 Anion Gap 14 Blood Urea Nitrogen 8 Creatinine 0.67 Glucose Level 115 Calcium Level 9.0 Phosphorus Level 4.1 Magnesium Level 1.7 Creatine Kinase 40 Creatine Kinase Index 1.6 Creatinine Kinase MB (Mass) 0.65 Troponin I 0.061 Medications Medications Current Medications Nitroglycerin (Nitroglycerin ([place])) 1 spray Q5M PRN TL CHEST PAIN; Start at 23:00 Enoxaparin Sodium (Lovenox) 80 mg Q12 SC Last administered on 01/24/17 08:41; Admin Dose 80 MG; Start 01/19/17 at 09:00 Benazepril HCl (Lotensin) 20 mg DAILY PO Last administered on 01/24/17 08:36; Admin Dose 20 MG; Start 01/19/17 at 09:00 Metoprolol Tartrate (Lopressor) 50 mg BID PO Last administered on 01/24/17 08: 34; Admin Dose 50 MG; Start 01/19/17 at 21:00 Amlodipine Besylate (Norvasc) 2.5 mg DAILY PO Last administered on 01/24/17 08 :34; Admin Dose 2.5 MG; Start 01/21/17 at 09:00 Digoxin (Digoxin) 0.125 mg DAILY@13 PO Last administered on 01/23/17 14:40; Admin Dose 0.125 MG; Start 01/21/17 at 13:00 Metoprolol Tartrate (Lopressor) 5 mg Q4H PRN IV Heart Rate >110; Start at 21:00 Diltiazem HCl (Cardizem Cd) 120 mg BID PO Last administered on 01/24/17 08:33 ; Admin Dose 120 MG; Start 01/20/17 at 21:00 Senna (Senokot) 1 tab BID PRN PO CONSTIPATION Last administered on 01/22/17 08 :36; Admin Dose 1 TAB; Start 01/21/17 at 16:30 Atorvastatin Calcium (Lipitor) 40 mg HS PO Last administered on 01/23/17 20:12 ; Admin Dose 40 MG; Start 01/22/17 at 21:00 Insulin Glargine (Lantus) 8 unit DAILY@20 SC ; Start 01/22/17 at 20:00 Diagnostic Test (Pha) (Accu-Chek) 1 ea 02 XX Last administered on 01/23/17 02: 01; Admin Dose 1 EA; Start 01/23/17 at 02:00 Miscellaneous Information 1 ea NOTE XX ; Start 01/22/17 at 11:00 Glucose (Glutose) 15 gm Q15M PRN PO DECREASED GLUCOSE; Start 01/22/17 at 11:00 Glucose (Glutose) 22.5 gm Q15M PRN PO DECREASED GLUCOSE; Start 01/22/17 at 11: 00 Dextrose (D50w Syringe) 25 ml Q15M PRN IV DECREASED GLUCOSE; Start 01/22/17 at 11:00 Dextrose (D50w Syringe) 50 ml Q15M PRN IV DECREASED GLUCOSE; Start 01/22/17 at 11:00 Glucagon (Glucagen) 1 mg Q15M PRN IM DECREASED GLUCOSE; Start 01/22/17 at 11:00 Glucose (Glutose) 15 gm Q15M PRN BUCCAL DECREASED GLUCOSE; Start 01/22/17 at 11 :00 Famotidine (Pepcid) 20 mg BID PO Last administered on 01/24/17 08:32; Admin Dose 20 MG; Start 01/22/17 at 21:00 Aspirin (Ecotrin) 325 mg DAILY PO Last administered on 01/24/17 08:32; Admin Dose 325 MG; Start 01/24/17 at 09:00 Clopidogrel Bisulfate (plaVIX) 75 mg DAILY PO Last administered on 5/23/17at 08 :32; Admin Dose 75 MG; Start 01/24/17 at 09:00 Acetaminophen (Tylenol Tab) 650 mg Q4H PRN PO NON-CARDIAC PAIN LEVEL 1-3; Start 01/23/17 at 14:00 Oxycodone/ Acetaminophen (Percocet (5/ 325)) 1 tab Q4H PRN PO REPORTED NON- CARDIAC PAIN 4-7; Start 01/23/17 at 14:00 Morphine Sulfate (morphine) 1 mg Q1H PRN IV PAIN NOT RELIEVED BY OTHERS; Start 01/23/17 at 14:00 Al Hydrox/Mg Hydrox/Simethicone (Mag-Al Plus) 30 ml Q4H PRN PO GASTROINTESTINAL UPSET; Start 01/23/17 at 14:00 Ondansetron HCl (Zofran Inj) 4 mg Q4H PRN IV NAUSEA AND/OR VOMITING; Start at 14:00 CHRISTELLE JARAMILLO MD January 24, 2017 10:18
[2017-01-24] MEDS ORDERED: APIX5TAB PO (10:44)
[2017-01-24] MEDS ORDERED: METF500T4 PO (10:44)
--- NOTE | 2017-01-24 11:28 | DS ---
DATE OF ADMISSION: 01/18/2017 DATE OF DISCHARGE: 01/24/2017 FINAL DIAGNOSES: 1. Atrial fibrillation with rapid ventricular response. 2. Essential hypertension. 3. Coronary artery disease status post coronary artery stenting to LAD and angioplasty to distal circumflex. 4. Type 2 diabetes mellitus. 5. Dyslipidemia. 6. Obesity. CONSULTATIONS: 1. Dr. Josh Mcwilliams, Cardiology. 2. Dr. Allen Baeza, Cardiology. 3. Dr. Tanvir Everett, Cardiology. HOSPITAL COURSE: This is a 61-year-old female who presents to the emergency room for evaluation of palpitations and shortness of breath that has been progressively getting worse over a 3-day period. The patient has known history of atrial fibrillation and she had an angiogram done in [place] which showed multivessel coronary artery disease. The patient went to see Dr. Everett at his office and Dr. Everett instructed her to go to the nearest emergency room. On presentation to the emergency room, the patient had documented heart rate of 155 beats per minute. She received a total of 15 mg IV Cardizem. The patient was admitted to inpatient setting. Dr. Everett's group was called for cardiology evaluation. The patient was started on therapeutic anticoagulation for stroke prophylaxis because of atrial fibrillation and high CHADS 2 score. The patient was also started on digoxin and Cardizem with improvement in the patient's atrial fibrillation. The patient continued to be in atrial fibrillation. However, the patient's heart rate was controlled. The patient underwent a 2D echocardiogram that showed ejection fraction of 40% to 45% with a PA systolic pressure of 36 mmHg. The patient was maintained on beta blockers and CARSON inhibitors. The patient was also noticed to have underlying dyslipidemia. Hence, the patient was started on statins. The patient has underlying type 2 diabetes mellitus with hemoglobin A1c of 7.3. The patient was started on sliding scale insulin along with Lantus insulin. However, as mentioned earlier, the patient had a left heart catheterization done in [place] that showed a multivessel coronary artery disease. Hence, the patient underwent a left heart catheterization here that showed multivessel coronary artery disease. The patient had a Synergy drug-eluting stent placed to the left anterior descending artery and the patient also had a coronary angioplasty done to the distal circumflex artery. The patient was started on dual antiplatelet therapy following stent placement and angioplasty. The patient was transferred to the intensive care unit following angioplasty. The patient was monitored in the intensive care unit over 24 hours. The patient was cleared by Cardiology to be discharged home. Cardiology recommended triple anticoagulation provided the patient's significant coronary artery disease and underlying atrial fibrillation. The patient denied any chest pain or any other significant complaints at the time of discharge. DISPOSITION AND PLAN: The patient will be discharged home today. The patient will take medications as per prescription. 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 The patient was instructed to resume metformin only on 01/26/2017 because of her recent IV dye use. She was instructed to take a carbohydrate controlled low cholesterol diet. The patient was instructed to resume activities as tolerated. She was instructed to follow up with Dr. Everett in 2 weeks. She was instructed to call 911 or go to the nearest emergency room if she has any chest pain, significant shortness of breath or new onset of slurred speech, onset of focal weakness or any unusual signs or symptoms. The patient verbalized understanding of her discharge instructions. Case management order was put in for insurance approval for Eliquis for this patient for anticoagulation. The patient was also given a 30-day free trial for Eliquis 5 mg p.o. b.i.d. CONDITION AT DISCHARGE: Stable. PERTINENT LABORATORY, DIAGNOSTIC DATA AND PROCEDURES: 1. Left heart catheterization. Percutaneous transluminal coronary angioplasty with placement of a Synergy drug-eluting stent to the mid left anterior descending artery with percutaneous transluminal coronary angioplasty to distal circumflex artery. Preserved left ventricular systolic function with high normal left heart filling pressures. 2. 2D echocardiogram. Ejection fraction of 40 to 45%. Estimated peak PA systolic pressure of 36 mmHg. There is moderate tricuspid regurgitation. 3. Fasting lipid panel: Triglycerides 17, total cholesterol 146, LDL 77, HDL 35. 4. Hemoglobin A1c is 7.3. DISCHARGE MEDICATIONS 1. Aspirin 81 mg p.o. daily. 2. Plavix 75 mg p.o. daily. 3. Eliquis 5 mg p.o. b.i.d. 4. Atorvastatin 40 mg p.o. at bedtime. 5. Amlodipine 2.5 mg daily. 6. Benazepril 20 mg p.o. daily. 7. Digoxin 0.125 mg p.o. daily. 8. Cardizem-CD 120 mg p.o. b.i.d. 9. Lopressor 25 mg p.o. b.i.d. 10. Metformin 500 mg p.o. b.i.d. Please start taking only from 01/26/2017. 11. Latest CBC: WBC 5.7, hemoglobin 13.8, hematocrit 40.3, platelet count 153. 12. Latest BMP: Sodium 142, potassium 3.8, chloride 106, carbon dioxide 26, anion gap 14, BUN 8, creatinine 0.67, glucose 150, calcium 9.0, phosphorus 4.1, magnesium 1.73. At this time, we would like to thank all the consultants for seeing the patient , doing the necessary procedures, and providing clinical recommendations. The case and management of this patient was fully discussed with Dr. Reyes. Approximately 40 minutes was spent on coordinating the discharge on this patient. ASHWINI REYES MD, AM/ANNE Conf#: [id number] DID#: [id number] MTDD
[2017-01-24] MEDS: DIGOXIN 0.125 MG TAB PO SCH (13:00)
--- NOTE | 2017-01-24 14:13 | RADRPT ---
Vent Rate: 84 bpm RR Interval: 0 msec WI Interval: 0 msec QRS Duration: 82 msec QT Interval: 328 msec QTC Interval: 387 msec P-R-T [place]: 0 - 37 - 0 degrees Atrial fibrillation T wave abnormality, consider lateral ischemia or digitalis effect Abnormal ECG Electronically Signed By: Jerardo Morejon [id number]
--- NOTE | 2017-01-24 14:18 | RADRPT ---
Vent Rate: 76 bpm RR Interval: 0 msec WA Interval: 0 msec QRS Duration: 84 msec QT Interval: 386 msec QTC Interval: 434 msec P-R-T [place]: 0 - 58 - -24 degrees Atrial fibrillation Nonspecific T wave abnormality , probably digitalis effect Abnormal ECG Electronically Signed By: Jerardo Morejon [id number]
== END 2017-01-24 13:00 | disposition home or self-care (01) | DRG 247 ==
LOC: E/R 18:33 → MS4 20:15 → ICU 01-23 13:59
PROVIDERS: ADMIT Family Medicine; ATTEND Family Medicine
PROC: 4A023N7 Measurement of Cardiac Sampling and Pressure, Left Heart, Percutaneous Approach (ICD-10-PCS; 2017-01-23)
PROC: B211YZZ Fluoroscopy of Multiple Coronary Arteries using Other Contrast (ICD-10-PCS; 2017-01-23)
PROC: B215YZZ Fluoroscopy of Left Heart using Other Contrast (ICD-10-PCS; 2017-01-23)
PROC: 027034Z Dilation of Coronary Artery, One Artery with Drug-eluting Intraluminal Device, Percutaneous Approach (ICD-10-PCS; principal; 2017-01-23 12:00)
PROC: 02703ZZ Dilation of Coronary Artery, One Artery, Percutaneous Approach (ICD-10-PCS; 2017-01-23 12:00)
DX: I48.91 Unspecified atrial fibrillation (principal); E83.42 Hypomagnesemia; I10 Essential (primary) hypertension; I25.110 Atherosclerotic heart disease of native coronary artery with unstable angina pectoris; E11.9 Type 2 diabetes mellitus without complications; E78.5 Hyperlipidemia, unspecified; E66.9 Obesity, unspecified; E83.52 Hypercalcemia; Z68.31 Body mass index [BMI] 31.0-31.9, adult; R07.89 Other chest pain; I25.5 Ischemic cardiomyopathy
CPT/HCPCS: 36415; 71010; 80048; 80053; 80061; 82550; 82553; 82962; 83036; 83735; 84100; 84443; 84484; 85025; 85610; 85730; 92920; 93005; 93306; 96361; 96372; 96374; J1940; C1725; C1769; C1874; C1887; C9600; J0583; J1644; J1815; J2250; J3010; J3475; J7030; J7040; Q9967

== ENCOUNTER 2017-06-23 06:03 | Observation (INO) | payer OTHER ==
[2017-06-23] VITALS (8 sets, daily range): BP systolic 118–145; BP diastolic 69–89; PULSE 67–80; RESP 20; TEMP 98.6; Ht 160 cm; Wt 82.0 kg
[~2017-06-23] VITALS: Ht 160 cm; Wt 82.0 kg
[~2017-06-23 06:03] MED LIST: AMLO2.5T78 PO; APIX5TAB PO; ASPI-664 PO; ATOR40TA68 PO; BENA20TA48 PO; CLOP75TA28 PO; DIGO125T PO; DILT120C77 PO; METF500T4 PO; METO-448 PO; NITR12SP TL
[2017-06-23] MEDS ORDERED: NITROGLYCERIN 2% 1 GM OINT PKT TD STA (06:12)
[2017-06-23] MEDS ORDERED: NITROGLYCERIN (SL) 0.4 MG TAB SL PRN ×2 (06:30→12:00)
[2017-06-23 06:45] LABS: BASOPHILS % 0.4 % (0.0-2.0); EOSINOPHILS # 0.1 10^3/ul (0.0-0.5); EOSINOPHILS % 1.5 % (0.0-7.0); HEMATOCRIT 38.5 % (37.0-47.0); HEMOGLOBIN 12.9 g/dl (12.0-16.0); LYMPHOCYTES # 2.9 10^3/ul (0.8-2.9); LYMPHOCYTES % 41.9 % (15.0-51.0); MEAN CORPUSCULAR HEMOGLOBIN 31.6 pg (29.0-33.0); MEAN CORPUSCULAR HGB CONC 33.5 g/dl (32.0-37.0); MEAN CORPUSCULAR VOLUME 94.4 fl (82.0-101.0); MEAN PLATELET VOLUME 10.4 fl (7.4-10.4); MONOCYTE # 0.6 10^3/ul (0.3-0.9); NEUTROPHIL # 3.3 10^3/ul (1.6-7.5); NEUTROPHILS % 47.9 % (39.0-77.0); PLATELET COUNT 180 10^3/UL (140-415); RED BLOOD COUNT 4.08 10^6/ul (4.20-5.40); RED CELL DISTRIBUTION WIDTH 13.3 % (11.5-14.5); WHITE BLOOD COUNT 6.9 10^3/ul (4.8-10.8)
--- NOTE | 2017-06-23 06:56 | RADRPT ---
PROCEDURE: CHEST - 1 VIEW CLINICAL INDICATION: 61-year-old female with chest pain. TECHNIQUE: A single frontal AP semi-erect portable view of the chest was performed. The images we re reviewed on a PACS workstation. COMPARISON: Chest x-ray January 18, 2017. FINDINGS: The cardiomediastinal silhouette is within normal limits. There is a shallow inspiration. There is minimal bibasilar subsegmental atelectasis. There is no evidence for an infiltrate. There is no lucia dence for congestive heart failure. There is no evidence for pneumothorax. The osseous structures ar e intact. IMPRESSION: Shallow inspiration with minimal bibasilar subsegmental atelectasis. .Rogerio Miranda MD, MD Date Time Electronically viewed and signed by .Rogerio Miranda MD, on 06/23/2017 06:56 .M/
[2017-06-23 07:05] LABS: INR 1.19; PROTIME 15.2 Sec (12.2-14.2); PT RATIO 1.2
[2017-06-23 07:06] LABS: PARTIAL THROMBOPLASTIN TIME 30.6 Sec (25.0-35.0)
[2017-06-23 07:11] LABS: ANION GAP 12 (8-16); BLOOD UREA NITROGEN 15 mg/dl (7-20); CALCIUM 9.6 mg/dl (8.4-10.2); CARBON DIOXIDE 26 mmol/L (21-31); CHLORIDE 110 mmol/L (97-110); CREATININE 0.62 mg/dl (0.44-1.00); GLUCOSE 156 mg/dl (70-220); POTASSIUM 3.5 mmol/L (3.5-5.1); SODIUM 144 mmol/L (135-144)
[2017-06-23 07:30] LABS: TROPONIN-I < 0.012 ng/ml (0.00-0.12)
[2017-06-23] MEDS ORDERED: ACETAMINOPHEN 325 MG TAB PO ONE (08:30)
[2017-06-23] MEDS ORDERED: ACETAMINOPHEN 325 MG TAB PO PRN ×2 (10:30→12:00)
[2017-06-23] MEDS ORDERED: ONDANSETRON 4 MG INJ IV PRN ×2 (10:30→12:00)
--- NOTE | 2017-06-23 10:31 | ERD ---
ER Documentation Chief Complaint Chief Complaint BIBA for CP starting yesterday and radiating Ke arm, s/s resolved HPI Patient is a 61-year-old female with coronary disease, hypertension, diabetes, and Fredy. fib who presents with chest pain and shortness of breath. She was brought in by ambulance. She said that she has had 3-5 days of chest pain and shortness of breath. She was given aspirin nitroglycerin by paramedics and the chest pain has now gone. The symptoms were coming and going and lasts hours at a time. She said the pain radiates to her neck, arm, and shoulder blades. She tried nitroglycerin spray at home but could not sleep last night. Upon review of old medical records the patient one previous visit with admission in January 2017 with Kari calhoun with RVR. ROS All systems reviewed and are negative except as per history of present illness. Medications Home Meds Active Scripts Metformin* (Glucophage*) 500 Mg Tab, 500 MG PO BID WITH MEALS for 30 Days, #90 TAB Please start only on 01/26/2017 Prov:ASHWINI KAM NP 01/24/17 Apixaban* (Eliquis*) 5 Mg Tablet, 5 MG PO BID for 30 Days, TAB Prov:ASHWINI KAM NP 01/24/17 Aspirin* (Aspirin* EC) 81 Mg Tablet.dr, 81 MG PO DAILY for 30 Days, TAB Prov:ASHWINI KAM NP 01/24/17 Metoprolol Tartrate* (Lopressor*) 25 Mg Tab, 50 MG PO BID for 30 Days, TAB Prov:ASHWINI KAM NP 01/24/17 Diltiazem Hcl* (Cardizem CD*) 120 Mg Cap.sr.24h, 120 MG PO BID for 30 Days Prov:ASHWINI KAM NP 01/24/17 Digoxin* (Digitek*) 125 Mcg Tablet, 0.125 MG PO DAILY@13 for 30 Days, TAB Prov:ASHWINI KAM NP 01/24/17 Benazepril Hcl* (Benazepril Hcl*) 20 Mg Tablet, 20 MG PO DAILY for 30 Days, TAB Prov:ASHWINI KAM NP 01/24/17 Atorvastatin* (Atorvastatin*) 40 Mg Tablet, 40 MG PO HS for 30 Days, TAB Prov:ASHWINI KAM NP 01/24/17 Amlodipine Besylate* (Amlodipine Besylate*) 2.5 Mg Tablet, 2.5 MG PO DAILY for 30 Days, TAB Prov:ROSSMARLINASHWINI GAS PIPE LAYER 01/24/17 Clopidogrel Bisulfate (Clopidogrel) 75 Mg Tablet, 75 MG PO DAILY for 30 Days, TAB Prov:ASHWINI KAM GAS PIPE LAYER 01/24/17 Reported Medications Nitroglycerin* (Nitroglycerin* [place]) 400 Mcg/[place], 1 SPRAY TL Q5M Y for CHEST PAIN, SPRAY 01/18/17 Aspirin* (Aspirin* EC) 81 Mg Tablet.dr, 81 MG PO DAILY, TAB 01/18/17 Allergies Allergies: Coded Allergies: No Known Allergy (Unverified , 06/23/17) PMhx/Soc History of Surgery: No Anesthesia Reaction: No Hx Neurological Disorder: No Hx Respiratory Disorders: No Hx Cardiac Disorders: Yes (cardiac arrythmia) Hx Psychiatric Problems: No Hx Miscellaneous Medical Probl: No Hx Alcohol Use: No Hx Substance Use: No Hx Tobacco Use: No Smoking Status: Never smoker FmHx Family History: coronary disease Physical Exam Vitals Vital Signs Date Time Temp Pulse Resp B/P Pulse Ox O2 Delivery O2 Flow Rate FiO2 06/23/17 08:03 67 18 106/67 100 Nasal Cannula 2.0 06/23/17 06:26 Nasal Cannula 2 06/23/17 06:10 98.3 73 16 121/78 99 Physical Exam Const: No acute distress Head: Atraumatic Eyes: Normal Conjunctiva ENT: Normal External Ears, Nose and Mouth. Neck: Full range of motion..~ No meningismus. Resp: Clear to auscultation bilaterally Cardio: Regular rate with irregular rhythm consistent with atrial fibrillation Abd: Soft, non tender, non distended. Normal bowel sounds Skin: No petechiae or rashes Back: No midline or flank tenderness Ext: No cyanosis, or edema Neur: Awake and alert Psych: Normal Mood and Affect Result Diagram: 06/23/1730 06/23/17629 Results 24 hrs Laboratory Tests Test 06/23/17 06:30 White Blood Count 6.910^3/ul Red Blood Count 4.0810^6/ul Hemoglobin 12.9g/dl Hematocrit 38.5% Mean Corpuscular Volume 94.4fl Mean Corpuscular Hemoglobin 31.6pg Mean Corpuscular Hemoglobin Concent 33.5g/dl Red Cell Distribution Width 13.3% Platelet Count 49986^3/UL Mean Platelet Volume 10.4fl Neutrophils % 47.9% Lymphocytes % 41.9% Monocytes % 8.0% Eosinophils % 1.5% Basophils % 0.4% Nucleated Red Blood Cells % 0.0/100WBC Neutrophils # 3.310^3/ul Lymphocytes # 2.910^3/ul Monocytes # 0.610^3/ul Eosinophils # 0.110^3/ul Basophils # 0.010^3/ul Nucleated Red Blood Cells # 0.010^3/ul Prothrombin Time 15.2Sec Prothrombin Time Ratio 1.2 INR International Normalized Ratio 1.19 Activated Partial Thromboplast Time 30.6Sec Sodium Level 144mmol/L Potassium Level 3.5mmol/L Chloride Level 110mmol/L Carbon Dioxide Level 26mmol/L Anion Gap 12 Blood Urea Nitrogen 15mg/dl Creatinine 0.62mg/dl Glucose Level 156mg/dl Calcium Level 9.6mg/dl Troponin I < 0.012ng/ml Current Medications Medications (Trade) Dose Ordered Sig/[place]a Route PRN Reason Start Time Stop Time Status Last Admin Dose Admin Nitroglycerin (Nitroglycerin 2% Oint) 1 inch ONCE STAT TD 06/23/17 06:12 06/23/17 06:14 DC 06/23/17 06:42 Nitroglycerin (Nitroglycerin (Sl Tab) 0.4 Mg) 1 tab Q5M UP TO 3 DOSES PRN SL CHEST PAIN 06/23/17 06:30 Acetaminophen (Tylenol Tab) 650 mg ONCE ONCE PO 06/23/17 08:30 06/23/17 08:31 DC 06/23/17 08:42 Ondansetron HCl (Zofran Inj) 4 mg ER BRIDGE PRN IV NAUSEA AND/OR VOMITING 06/23/17 10:30 06/24/17 10:29 Acetaminophen (Tylenol Tab) 650 mg ER BRIDGE PRN PO MILD PAIN/FEVER 06/23/17 10:30 06/24/17 10:29 Procedures/MDM EKG #1 read by me: Rate/Rhythm: Atrial fibrillation at a rate of 87 Intervals: Normal Impression: Atrial fibrillation EKG #2 read by me: Rate/Rhythm: Atrial fibrillation at a rate of 70 Intervals: Normal Impression: Atrial fibrillation PROCEDURE: CHEST - 1 VIEW CLINICAL INDICATION: 61-year-old female with chest pain. TECHNIQUE: A single frontal AP semi-erect portable view of the chest was performed. The images were reviewed on a PACS workstation. COMPARISON: Chest x-ray January 18, 2017. FINDINGS: The cardiomediastinal silhouette is within normal limits. There is a shallow inspiration. There is minimal bibasilar subsegmental atelectasis. There is no evidence for an infiltrate. There is no evidence for congestive heart failure. There is no evidence for pneumothorax. The osseous structures are intact. IMPRESSION: Shallow inspiration with minimal bibasilar subsegmental atelectasis. .Rogerio Miranda MD, MD Date Time Electronically viewed and signed by .Rogerio Miranda MD, on 06/23/2017 06:56 Patient is a 61-year-old female with multiple cardiac risk factors who presents with chest pain shortness of breath. I am concerned for unstable angina. The patient was given aspirin nitroglycerin by paramedics. The patient will be admitted to the care of Dr. Healy from the panel team. The patient does have [facility] insurance but we spoke with the case technician at [facility] who gave us authorization [facility]. I doubt pneumonia, pneumothorax, pulmonary embolism, or aortic dissection. Departure Diagnosis: Primary Impression: Chest pain Chest pain type: unspecified Qualified Code: R07.9 - Chest pain, unspecified type Condition: STEPHANI Urena MD Jun 23, 2017 10:31
[2017-06-23] MEDS ORDERED: DOCUSATE SODIUM 100 MG CAP PO PRN (12:00)
[2017-06-23] MEDS ORDERED: morphine 2 MG INJ IV PRN (12:00)
[2017-06-23] MEDS ORDERED: BISACODYL 10 MG SUPP PR PRN (12:00)
[2017-06-23] MEDS ORDERED: MAGNESIUM HYDROXIDE 30ML CUP PO PRN (12:00)
[2017-06-23] MEDS ORDERED: NACL 0.9% 3 ML SYG IV SCH (12:00)
[2017-06-23] MEDS ORDERED: AMLODIPINE 2.5 MG TAB PO SCH (12:00)
[2017-06-23] MEDS: DIGOXIN 0.125 MG TAB PO SCH (12:15)
[2017-06-23] MEDS: DILTIAZEM (CD) 120 MG CAP PO SCH ×2 (12:17→20:58)
[2017-06-23] MEDS: CLOPIDOGREL 75 MG TAB PO SCH (12:23)
[2017-06-23] MEDS: APIXABAN 5 MG TABLET PO SCH ×2 (12:23→20:58)
[2017-06-23] MEDS: FAMOTIDINE 20 MG TAB PO SCH ×2 (12:23→20:59)
[2017-06-23] MEDS: METOPROLOL 50 MG TAB PO SCH ×2 (12:24→20:59)
[2017-06-23] MEDS: ASPIRIN (EC) 81 MG TAB PO SCH (12:24)
[2017-06-23] MEDS: BENAZEPRIL 20 MG TAB PO SCH (12:25)
[2017-06-23 12:48] LABS: CREATINE KINASE 92 IU/L (23-200)
[2017-06-23 13:00] LABS: CK-MB 0.53 ng/ml (0.0-2.4)
[2017-06-23 13:02] LABS: TROPONIN-I < 0.012 ng/ml (0.00-0.12)
--- NOTE | 2017-06-23 14:12 | HP ---
Date/Time of Note Date/Time of Note DATE: 06/23/17 TIME: 13:57 Assessment/Plan VTE Prophylaxis VTE Prophylaxis Intervention: other (On Eliquis) Lines/Catheters IV Catheter Type (from Nrs): Saline Lock Urinary Cath still in place: No Assessment/Plan Assessment/Plan 61-year-old female with; 1. Chest pressure, substernal, apparently worsening over the past 5 days, significant risk factors. Continue current cardiac medications, cardiac enzymes are negative 2 so far third set is pending. EKG shows no acute ischemic changes just atrial fibrillation rate controlled. 2D echocardiogram was done approximately 5 months ago, it will be repeated if requested by cardiology. 2. Atrial fibrillation, currently rate controlled, she is on multiple agents including beta blockers and calcium channel rachid along with digoxin for heart rate control. She is also on Eliquis for anticoagulation and stroke dimension. Continue current medications, further recommendation per cardiology 3. Diabetes mellitus, on metformin as an outpatient, will continue for now, check hemoglobin A1c, sliding scale insulin. 4. Hypertension: Already on multiple agents for both blood pressure and heart rate control, continue current medications, further adjustments as needed. 5. Hyperlipidemia: Check fasting lipid panel in a.m., continue Lipitor. Prophylaxis: Pepcid for GI prophylaxis, patient already on Eliquis. Disposition: Admitted to telemetry observation, rule out acute coronary syndrome , follow-up further cardiology recommendations. HPI/ROS Admit Date/Time Admit Date/Time Jun 23, 2017 at 10:12 Hx of Present Illness Chief complaint: Chest pressure and shortness of breath History of presenting illness: This is a 61-year-old female with history of coronary artery disease, status post LAD stenting in January 2017, hyperlipidemia, hypertension, diabetes mellitus, who presented in the emergency department with complaint of progressive and worsening chest pressure for the past 5 days. Patient reports that with the chest pressure she has been having some shortness of breath, she has been also having dizziness for the past 3 days it is unclear if it with the chest pressure or not. She reports episodes of palpitation but she has chronic atrial fibrillation which is rate controlled currently. She reports occasional nausea, she denies vomiting. She denies lower extremity edema, she reports possibly orthopnea she indicates that she has to sleep on her side. She denies any fevers. She reports cough today. She denies any genitourinary or gastrointestinal complaints She reports that Dr. Everett is her primary lockstitch zipper setter, she has been taking care of by Dr. Baeza/Dr. Yousif on prior admission therefore they have been consulted on this admission. For now plan is to rule out for acute coronary syndrome. I did leave the patient on her Eliquis. Heart rate is controlled. Further recommendation per Dr. Baeza. ROS Constitutional: diaphoresis (For a month) ENT: no complaints Respiratory: no complaints, shortness of breath (With chest pressure) Cardiovascular: chest pain (For 5 days more like chest pressure), lightheadedness (For 3 days), palpitations (Occasional) Gastrointestinal: no complaints Genitourinary: no complaints Musculoskeletal: no complaints Skin: no complaints Neurologic: no complaints Endocrine: no complaints Lymphatic: no complaints PMH/Family/Social Past Medical History 1. Atrial fibrillation 2. Essential hypertension. 3. Coronary artery disease status post coronary artery stenting to LAD and angioplasty to distal circumflex. 4. Type 2 diabetes mellitus. 5. Dyslipidemia. 6. Obesity. Past Surgical History Status post coronary artery stenting to LAD and angioplasty to distal circumflex January 2017 Patient also reports history of stenting of vessels in her left lower extremity remotely Family History Significant Family History: no pertinent family hx Social History Alcohol Use: none Smoking Status: Never smoker Drug Use: none Exam/Review of Systems Vital Signs Vitals Vital Signs Date Time Temp Pulse Resp B/P Pulse Ox O2 Delivery O2 Flow Rate FiO2 06/23/17 12:00 70 06/23/17 11:45 97.4 20 118/69 95 Room Air 06/23/17 11:07 2.0 Exam Constitutional: alert, oriented, well developed Respiratory: clear to auscultation, normal air movement Cardiovascular: nl pulses, regular rate and rhythm Gastrointestinal: non-tender, soft Musculoskeletal: nl extremities to inspection Extremities: normal pulses, other (No edema, clubbing or cyanosis) Neurological: MANDREL PRESS HAND II-XII intact, nl mental status, nl speech, nl strength Labs Result Diagram: 06/23/17 0630 06/23/17 0630 Medications Medications Current Medications Amlodipine Besylate (Norvasc) 2.5 mg DAILY PO Last administered on 06/23/17t 12:14; Admin Dose 2.5 MG; Start 06/23/17 at 12:00 Apixaban (Eliquis) 5 mg BID PO Last administered on 06/23/17 12:23; Admin Dose 5 MG; Start 06/23/17 at 13:00 Aspirin (Halfprin) 81 mg DAILY PO Last administered on 06/23/17 12:24; Admin Dose 81 MG; Start 06/23/17 at 13:00 Atorvastatin Calcium (Lipitor) 40 mg HS PO ; Start 06/23/17 at 21:00 Benazepril HCl (Lotensin) 20 mg DAILY PO Last administered on 06/23/17 12:25 ; Admin Dose 20 MG; Start 06/23/17 at 13:00 Clopidogrel Bisulfate (plaVIX) 75 mg DAILY PO ; Start 06/23/17 at 13:00 Digoxin (Digoxin) 0.125 mg DAILY@13 PO Last administered on 06/23/17 12:15; Admin Dose 0.125 MG; Start 06/23/17 at 13:00 Diltiazem HCl (Cardizem Cd) 120 mg BID PO Last administered on 06/23/17 12:17 ; Admin Dose 120 MG; Start 06/23/17 at 13:00 Metoprolol Tartrate (Lopressor) 50 mg BID PO Last administered on 06/23/17 12 :24; Admin Dose 50 MG; Start 06/23/17 at 13:00 Ondansetron HCl (Zofran Inj) 4 mg Q6H PRN IV NAUSEA AND/OR VOMITING; Start at 12:00 Nitroglycerin (Nitroglycerin (Sl Tab) 0.4 Mg) 1 tab Q5M PRN SL CHEST PAIN; Start 06/23/17 at 12:00 Acetaminophen (Tylenol Tab) 650 mg Q6H PRN PO PAIN LEVEL 1-3 OR FEVER; Start 06/23/17 at 12:00 Morphine Sulfate (morphine) 2 mg Q4H PRN IV PAIN LEVEL 7-10; Start 06/23/17 at 12:00 Docusate Sodium (Colace) 100 mg Q12H PRN PO CONSTIPATION; Start 06/23/17 at 12 :00 Magnesium Hydroxide (Milk Of Mag) 30 ml DAILY PRN PO CONSTIPATION; Start 06/23 at 12:00 Bisacodyl (Dulcolax Supp) 10 mg DAILY PRN [place] CONSTIPATION; Start 06/23/17 at 12:00 Famotidine (Pepcid) 20 mg Q12 PO Last administered on 06/23/17t 12:23; Admin Dose 20 MG; Start 06/23/17 at 13:00 Procedures Procedures PROCEDURE: CHEST - 1 VIEW CLINICAL INDICATION: 61-year-old female with chest pain. TECHNIQUE: A single frontal AP semi-erect portable view of the chest was performed. The images were reviewed on a PACS workstation. COMPARISON: Chest x-ray January 18, 2017. FINDINGS: The cardiomediastinal silhouette is within normal limits. There is a shallow inspiration. There is minimal bibasilar subsegmental atelectasis. There is no evidence for an infiltrate. There is no evidence for congestive heart failure. There is no evidence for pneumothorax. The osseous structures are intact. IMPRESSION: Shallow inspiration with minimal bibasilar subsegmental atelectasis. .Rogerio Miranda MD, MD Date Time Electronically viewed and signed by .Rogerio Miranda MD, on 06/23/2017 06:56 .M/ EKG: Atrial fibrillation with controlled rate 70s, no acute or chronic ischemic changes. ANTHONY BLOOM Jun 23, 2017 14:12
[2017-06-23] MEDS ORDERED: GLUCAGON 1 MG INJ IM PRN (14:30)
[2017-06-23] MEDS ORDERED: DEXTROSE 50% 50 ML SYRINGE IV PRN ×2 (14:30)
[2017-06-23] MEDS ORDERED: GLUCOSE GEL 15 GRAM TUBE PO PRN ×2 (14:30)
[2017-06-23] MEDS ORDERED: GLUCOSE GEL 15 GRAM TUBE BUCCAL PRN (14:30)
[2017-06-23] MEDS: INSULIN ASPART [NOVOLOG] 3 ML PEN SC SCH ×2 (17:18→20:59)
[2017-06-23] MEDS: metFORMIN 500 MG TAB PO SCH (17:18)
[2017-06-23 19:34] LABS: CREATINE KINASE 78 IU/L (23-200)
[2017-06-23 19:47] LABS: CK-MB 0.46 ng/ml (0.0-2.4)
[2017-06-23 19:57] LABS: TROPONIN-I < 0.012 ng/ml (0.00-0.12)
[2017-06-23] MEDS ORDERED: ATORVASTATIN 40 MG TAB PO SCH (21:00)
[2017-06-23] MEDS: ISOSORBIDE DINITRATE 10 MG TAB PO SCH (21:24)
[2017-06-24] VITALS (12 sets, daily range): BP systolic 112–150; BP diastolic 59–96; PULSE 42–98; RESP 18–20
--- NOTE | 2017-06-24 01:30 | CONS ---
DATE OF ADMISSION: 06/23/2017 DATE OF CONSULTATION: 06/23/2017 REASON FOR CONSULTATION: Chest pain, assess for acute coronary syndrome. REQUESTING PHYSICIAN: Dr. Bloom. HISTORY OF PRESENT ILLNESS: Ms. Miller is a 61-year-old female with a history of coronary artery d isease, status post PTCA and stent placement to LAD and circumflex January 2017, hypertension, dyslipide ajith, atrial fibrillation who presented with complaints of substernal chest pressure and back pain as well as mild shortness of breath. Upon arrival, temperature of 98.3, blood pressure 120/78, pulse 73, respirations 16, saturating 99%. The patient's labs notable for white count 6.9, hemoglobin 12. 9, platelet count 180. Sodium 144, potassium 3.5, creatinine 0.6, BUN 15. Troponin negative. INR 1.1. The patient underwent a chest x-ray revealing shallow inspirations with minimal bibasilar subsegment al atelectasis. The patient's electrocardiogram revealed atrial fibrillation of 87, normal axis, no rmal intervals, with diffuse nonspecific ST and T-wave abnormalities. The patient subsequently has been admitted to the floor and since admitted to floor has been monitored on telemetry revealing atr ial fibrillation, now rate controlled. The patient has been placed on baseline aspirin, Plavix and Eliquis. PAST MEDICAL HISTORY: As above in HPI. MEDICATIONS CURRENTLY IN HOSPITAL: 1. Lipitor 40 mg at bedtime. 2. Metformin. 3. Insulin sliding scale. 4. Eliquis 5 mg p.o. b.i.d. 5. Aspirin 81 mg daily. 6. Benazepril 20 mg daily. 7. Plavix 75 mg daily. 8. Digoxin 0.125 mg daily. 9. Diltiazem 120 p.o. b.i.d. 10. Metoprolol 50 mg b.i.d. 11. Pepcid 20 mg q.12. 12. Norvasc 2.5 mg daily. ALLERGIES: NO KNOWN DRUG ALLERGIES. SOCIAL HISTORY: No current tobacco, ETOH or illicit drug use. FAMILY HISTORY: Negative for sudden cardiac or early CAD. REVIEW OF SYSTEMS: As above in HPI. CONSTITUTIONAL: No fevers, chills. PULMONARY: Shortness of breath. CARDIOVASCULAR: Chest pain. GASTROINTESTINAL: No vomiting. GENITOURINARY: No hematuria. MUSCULOSKELETAL: Degenerative joint disease. PSYCHIATRIC: The patient denies depression. NEUROLOGIC: No documented history of CVA. PHYSICAL EXAMINATION VITAL SIGNS: Temperature 97.4, blood pressure 118/69, pulse 74, respirations 20, saturating 95%. GENERAL: The patient is alert, awake, complaining of substernal chest pain. NECK: JVP approximately 8 cm water. CHEST: Fair air movement throughout. HEART: Irregularly irregular, I/ systolic murmur, nondisplaced PMI. ABDOMEN: Positive bowel sounds, soft. EXTREMITIES: No pitting edema, 1+ pulses bilaterally, posterior tibial. LABORATORIES: As above in HPI but since admit the patient had 2 negative troponins. IMAGING STUDIES: As above in HPI. No further imaging for my review at this time. ECG: As above in HPI. No further electrocardiograms for my review at this time. IMPRESSION: 1. Chest pain, assess for acute coronary syndrome. 2. Abnormal electrocardiogram, assess for acute coronary syndrome. 3. Atrial fibrillation, rate controlled. 4. History of percutaneous transluminal coronary angioplasty and stent placement to LAD and PTCA al one to circumflex, January 2017. 5. Diabetes mellitus. 6. Dyslipidemia. RECOMMENDATIONS: 1. At this time, would maintain patient on telemetry monitoring to follow rhythm and rate control c losely. 2. Would continue the patient's antiplatelet therapy for stent patency as well as Eliquis. I will follow for any bleeding complications and if patient does rule out and no further signs of cardiac i schemia are found then would likely also discontinue the patient's aspirin and continue the patient on Plavix with Eliquis to decrease her bleeding risk. 3. Continue the patient's baseline beta rachid and diltiazem for heart rate and blood pressure con trol as well as benazepril. Additionally will continue the patient's digoxin. Will discontinue the patient's Norvasc. The patient is also on diltiazem and consider initiation of low dose oral nitra ashia. 4. If the patient rules out, we will discuss with the possibility of inpatient versus outpati ent stress testing given recent stenting. Thank you for allowing me to take part in the care of this patient. I will continue to follow very closely with you with further recommendations to be made as the patient progresses through her [facility] clinical course. Dictated By: JOSSY SUAREZ/ANNE Conf#: [id number] [facility]#: [id number] CC: ANTHONY BLOOM MD;*End*
[2017-06-24] MEDS ORDERED: ACCU-CHEK XX SCH ×2 (02:00)
[2017-06-24] MEDS: metFORMIN 500 MG TAB PO SCH (07:30)
[2017-06-24] MEDS: INSULIN ASPART [NOVOLOG] 3 ML PEN SC SCH ×2 (07:53→11:31)
[2017-06-24] MEDS ORDERED: REGADENOSON 0.4 MG/5 ML SYG ONE (08:46)
[2017-06-24] MEDS: CLOPIDOGREL 75 MG TAB PO SCH (09:00)
[2017-06-24 09:47] LABS: ALBUMIN 3.7 g/dl (3.3-4.9); ALBUMIN/GLOBULIN RATIO 1.05; BILIRUBIN,INDIRECT 0.8 mg/dl (0-1.1); BILIRUBIN,TOTAL 0.8 mg/dl (0.2-1.3); CALCIUM 9.2 mg/dl (8.4-10.2); CREATININE 0.73 mg/dl (0.44-1.00); MAGNESIUM 1.7 mg/dl (1.7-2.5); POTASSIUM 4.2 mmol/L (3.5-5.1); TOTAL PROTEIN 7.2 g/dl (6.1-8.1)
[2017-06-24] MEDS: ISOSORBIDE DINITRATE 10 MG TAB PO SCH ×2 (13:00→14:26)
--- NOTE | 2017-06-24 13:29 | CONS ---
Date/Time of Note Date/Time of Note DATE: 06/24/17 TIME: 13:26 Assessment/Plan Assessment/Plan Chief Complaint/Hosp Course IMPRESSION: 1. Chest pain, assess for acute coronary syndrome.-negative trop x 3 2. Abnormal electrocardiogram, assess for acute coronary syndrome. 3. Atrial fibrillation, rate controlled. 4. History of percutaneous transluminal coronary angioplasty and stent placement to LAD and PTCA alone to circumflex, January 2017. 5. Diabetes mellitus. 6. Dyslipidemia. Recc: -Tele -Continue asa/plavix -Continue eliquis for now -Contnue Dilt/BB/statin -Lexiscan stress test today -If stress negative ok for d/c from cardiac stndpoint on plavix with eliquis and can d/c asa. Continue all other medications Problems: Consultation Date/Type/Reason Admit Date/Time Jun 23, 2017 at 10:12 Initial Consult Date 06/23/2017 Type of Consultation: cardiology Reason for Consultation chest pain Referring Provider: ANTHONY BLOOM Exam/Review of Systems Vital Signs Vitals Vital Signs Date Time Temp Pulse Resp B/P Pulse Ox O2 Delivery O2 Flow Rate FiO2 06/24/17 12:16 73 06/24/17 11:42 98.1 19 150/96 97 06/24/17 00:00 Room Air 06/23/17 11:07 2.0 Intake and Output 06/23/17 06/23/17 06/24/17 15:00 23:00 07:00 Intake Total 200 ml 200 ml Balance 200 ml 200 ml Exam Review of Systems: CONSTITUTIONAL: No fevers, chills. PULMONARY: No sob CARDIOVASCULAR:intermittent chest pain GASTROINTESTINAL: No nausea/vomiting. GENITOURINARY: No hematuria/dysuria. MUSCULOSKELETAL: No myagias/arthalgias. PSYCHIATRIC: The patient denies depression. NEUROLOGIC: No weakness Constitutional: alert, oriented Psych: no complaints Head: normocephalic ENMT: mucosa pink and moist Neck: jvd (9 cm water), supple Respiratory: clear to auscultation Cardiovascular: regular rate and rhythm Gastrointestinal: non-tender Musculoskeletal: muscle tone (normal) Extremities: edema (none) Neurological: other (No focal deficits) Results Result Diagram: 06/23/17 0630 06/24/17 0816 Results 24 hrs Laboratory Tests Test 06/23/17 17:18 06/23/17 19:02 06/23/17 20:57 06/24/17 07:52 Bedside Glucose 131 131 148 Creatine Kinase 78 Creatine Kinase Index 0.6 Creatinine Kinase MB (Mass) 0.46 Troponin I < 0.012 Test 06/24/17 08:16 06/24/17 11:31 Sodium Level 143 Potassium Level 4.2 Chloride Level 106 Carbon Dioxide Level 29 Anion Gap 12 Blood Urea Nitrogen 13 Creatinine 0.73 Glucose Level 140 Hemoglobin A1c 7.7 H Calcium Level 9.2 Magnesium Level 1.7 Total Bilirubin 0.8 Direct Bilirubin 0.00 Indirect Bilirubin 0.8 Aspartate Amino Transf (AST/SGOT) 48 H Alanine Aminotransferase (ALT/SGPT) 84 H Alkaline Phosphatase 56 Total Protein 7.2 Albumin 3.7 Globulin 3.50 H Albumin/Globulin Ratio 1.05 Triglycerides Level 124 Cholesterol Level 124 LDL Cholesterol, Calculated 68 HDL Cholesterol 31 L Cholesterol/HDL Ratio 4.0 Bedside Glucose 141 Medications Medications Current Medications Apixaban (Eliquis) 5 mg BID PO Last administered on 06/23/17 20:58; Admin Dose 5 MG; Start 06/23/17 at 13:00 Aspirin (Halfprin) 81 mg DAILY PO Last administered on 06/23/17 12:24; Admin Dose 81 MG; Start 06/23/17 at 13:00 Atorvastatin Calcium (Lipitor) 40 mg HS PO Last administered on 06/23/17 20: 58; Admin Dose 40 MG; Start 06/23/17 at 21:00 Benazepril HCl (Lotensin) 20 mg DAILY PO Last administered on 06/23/17 12:25 ; Admin Dose 20 MG; Start 06/23/17 at 13:00 Clopidogrel Bisulfate (plaVIX) 75 mg DAILY PO ; Start 06/23/17 at 13:00 Digoxin (Digoxin) 0.125 mg DAILY@13 PO Last administered on 06/23/17 12:15; Admin Dose 0.125 MG; Start 06/23/17 at 13:00 Diltiazem HCl (Cardizem Cd) 120 mg BID PO Last administered on 06/23/17 20:58 ; Admin Dose 120 MG; Start 06/23/17 at 13:00 Metoprolol Tartrate (Lopressor) 50 mg BID PO Last administered on 06/23/17 20 :59; Admin Dose 50 MG; Start 06/23/17 at 13:00 Ondansetron HCl (Zofran Inj) 4 mg Q6H PRN IV NAUSEA AND/OR VOMITING; Start at 12:00 Nitroglycerin (Nitroglycerin (Sl Tab) 0.4 Mg) 1 tab Q5M PRN SL CHEST PAIN; Start 06/23/17 at 12:00 Acetaminophen (Tylenol Tab) 650 mg Q6H PRN PO PAIN LEVEL 1-3 OR FEVER Last administered on 06/24/17 00:01; Admin Dose 650 MG; Start 06/23/17 at 12:00 Morphine Sulfate (morphine) 2 mg Q4H PRN IV PAIN LEVEL 7-10; Start 06/23/17 at 12:00 Docusate Sodium (Colace) 100 mg Q12H PRN PO CONSTIPATION; Start 06/23/17 at 12 :00 Magnesium Hydroxide (Milk Of Mag) 30 ml DAILY PRN PO CONSTIPATION; Start 06/23 at 12:00 Bisacodyl (Dulcolax Supp) 10 mg DAILY PRN [place]STIPATION; Start 06/23/17 at 12:00 Famotidine (Pepcid) 20 mg Q12 PO Last administered on 06/23/17 20:59; Admin Dose 20 MG; Start 06/23/17 at 13:00 Diagnostic Test (Pha) (Accu-Chek) 1 ea 02 XX Last administered on 06/24/17 02 :02; Admin Dose 1 EA; Start 06/24/17 at 02:00 Diagnostic Test (Pha) (Accu-Chek) 1 ea 02 XX Last administered on 06/24/17 02 :02; Admin Dose 1 EA; Start 06/24/17 at 02:00 Miscellaneous Information 1 ea NOTE XX ; Start 06/23/17 at 14:30 Glucose (Glutose) 15 gm Q15M PRN PO DECREASED GLUCOSE; Start 06/23/17 at 14:30 Glucose (Glutose) 22.5 gm Q15M PRN PO DECREASED GLUCOSE; Start 06/23/17 at 14: 30 Dextrose (D50w Syringe) 25 ml Q15M PRN IV DECREASED GLUCOSE; Start 06/23/17 at 14:30 Dextrose (D50w Syringe) 50 ml Q15M PRN IV DECREASED GLUCOSE; Start 06/23/17 at 14:30 Glucagon (Glucagen) 1 mg Q15M PRN IM DECREASED GLUCOSE; Start 06/23/17 at 14: 30 Glucose (Glutose) 15 gm Q15M PRN BUCCAL DECREASED GLUCOSE; Start 06/23/17 at 14:30 Isosorbide Dinitrate (Isordil) 10 mg TID PO Last administered on 06/23/17t 21: 24; Admin Dose 10 MG; Start 06/23/17 at 21:00 JOSSY DODD Jun 24, 2017 13:29
[2017-06-24] MEDS: DIGOXIN 0.125 MG TAB PO SCH (14:25)
[2017-06-24] MEDS: FAMOTIDINE 20 MG TAB PO SCH (14:25)
[2017-06-24] MEDS: DILTIAZEM (CD) 120 MG CAP PO SCH (14:25)
[2017-06-24] MEDS: BENAZEPRIL 20 MG TAB PO SCH (14:26)
[2017-06-24] MEDS: ASPIRIN (EC) 81 MG TAB PO SCH (14:26)
[2017-06-24] MEDS: APIXABAN 5 MG TABLET PO SCH (14:27)
[2017-06-24] MEDS: METOPROLOL 50 MG TAB PO SCH (14:27)
--- NOTE | 2017-06-24 14:33 | RADRPT ---
PROCEDURE: Nuclear medicine myocardial stress and rest scan. CLINICAL INDICATION: Chest pain. TECHNIQUE: The patient was stressed with 0.4 mg IV Lexiscan. 10 mCi technetium 99m Tetrofosmin ( Myoview) was administered rest. 30 mCi technetium 99m Tetrofosmin (Myoview) was administered duri ng stress. Images were obtained and reconstructed in the short axis, horizontal long axis, and vert ical long axis. Gated images were obtained and ejection fraction was calculated. COMPARISON: No prior study is available for comparison. FINDINGS: The stress and rest images demonstrate normal uptake throughout. There is no fixed abnormality or r eversible abnormality. There is no evidence of transient ischemic dilatation. Wall motion is normal. There is normal wall thickening during systole. Ejection fraction at stress is 59%. IMPRESSION: 1. No evidence of stress induced myocardial ischemia. 2. Ejection fraction at stress is 59%. RPTAT: QQ .Kwaku Jauregui MD, MD Date Time Electronically viewed and signed by .Kwaku Jauregui MD, on 06/24/2017 14:33 .R/
--- NOTE | 2017-06-24 15:31 | PDOCDIS ---
Discharge Instructions DIAGNOSIS Discharge Diagnosis Non-cardiac chest pain CONDITION Patient Condition: Good HOME CARE INSTRUCTIONS: Diet Instructions: low-fat, diabetic dietSpecial Diet: DIABETIC DIET. ACTIVITY: Activity Restrictions: Slowly Increase Activity FOLLOW UP/APPOINTMENTS Follow-up Plan With her PCP (Darline Barbour MD) in the next week, and her marine underwriter in the next month. LEVAR LANE M.D. Jun 24, 2017 15:31
--- NOTE | 2017-06-24 15:37 | DS ---
Date/Time of Note Date/Time of Note DATE: 06/24/17 TIME: 15:33 Discharge Summary Admission/Discharge Info Admit Date/Time Jun 23, 2017 at 10:12 Discharge Date/Time Jun 24, 2017 Discharge Diagnosis Non-cardiac chest pain Patient Condition: Good Consults Dr. Allen Baeza (Cardiology) Procedures Lexiscan CXR Hx of Present Illness Chief complaint: Chest pressure and shortness of breath Ms. Miller is a 61-year-old woman with history of coronary artery disease, status post LAD stenting in January 2017, hyperlipidemia, atrial fibrillation, hypertension, diabetes mellitus, who presented in the emergency department with complaint of progressive and worsening chest pressure for the previous 5 days. Patient reports that with the chest pressure she had been having some shortness of breath, with dizziness for the preceding 3 days and palpitations. Hospital Course She was admitted to telemetry and ruled out for acute coronary syndrome with serial troponins. INR was 1.19. HDL was low at 31, but the lipid panel was otherwise normal. Her chemistry panel demonstrated normal renal function, but mildly elevated transaminases. Her HgbA1c was elevated at 7.7%, indicating sub- optimal control of her diabetes. She was pain-free today, and feeling back to normal. Lexiscan showed no evidence of stress-induced myocardial ischemia, with an ejection fraction at stress of 59%. I reviewed her results with Dr. Baeza, who recommended discontinuing the aspirin and continuing her on Eliquis and Plavix. Home Meds Active Scripts Metformin* (Glucophage*) 500 Mg Tab, 500 MG PO BID WITH MEALS for 30 Days, #90 TAB Please start only on 01/26/2017 Prov:ASHWINI KAM NP 01/24/17 Apixaban* (Eliquis*) 5 Mg Tablet, 5 MG PO BID for 30 Days, TAB Prov:ASHWINI KAM NP 01/24/17 Metoprolol Tartrate* (Lopressor*) 25 Mg Tab, 50 MG PO BID for 30 Days, TAB Prov:ASHWINI KAM NP 01/24/17 Diltiazem Hcl* (Cardizem CD*) 120 Mg Cap.sr.24h, 120 MG PO BID for 30 Days Prov:ASHWINI KAM NP 01/24/17 Digoxin* (Digitek*) 125 Mcg Tablet, 0.125 MG PO DAILY@13 for 30 Days, TAB Prov:ASHWINI KAM NAIL EXPERT 01/24/17 Benazepril Hcl* (Benazepril Hcl*) 20 Mg Tablet, 20 MG PO DAILY for 30 Days, TAB Prov:ASHWINI KAM NAIL EXPERT 01/24/17 Atorvastatin* (Atorvastatin*) 40 Mg Tablet, 40 MG PO HS for 30 Days, TAB Prov:ASHWINI KAM NAIL EXPERT 01/24/17 Amlodipine Besylate* (Amlodipine Besylate*) 2.5 Mg Tablet, 2.5 MG PO DAILY for 30 Days, TAB Prov:ASHWINI KAM NAIL EXPERT 01/24/17 Clopidogrel Bisulfate (Clopidogrel) 75 Mg Tablet, 75 MG PO DAILY for 30 Days, TAB Prov:ASHWINI KAM NAIL EXPERT 01/24/17 Reported Medications Nitroglycerin* (Nitroglycerin* [place]) 400 Mcg/[place], 1 SPRAY TL Q5M Y for CHEST PAIN, SPRAY 01/18/17 Discontinued Reported Medications Aspirin* (Aspirin* EC) 81 Mg Tablet., 81 MG PO DAILY, TAB 01/18/17 Discontinued Scripts Aspirin* (Aspirin* EC) 81 Mg Tablet., 81 MG PO DAILY for 30 Days, TAB Prov:ASHWINI KAM NAIL EXPERT 01/24/17 Follow-up Plan With her PCP (Darline Barbour MD) in the next week, and her senior engineering technician Dr. Tanvir Everett in the next month. Primary Care Provider Darline Barbour MD Time spent on discharge: > 30 minutes Pending Labs Laboratory Tests Test 06/23/17 17:18 06/23/17 19:02 06/23/17 20:57 06/24/17 07:52 Bedside Glucose 131mg/dL (70-220) 131mg/dL (70-220) 148mg/dL (70-220) Creatine Kinase 78IU/L (23-200) Creatine Kinase Index 0.6 Creatinine Kinase MB (Mass) 0.46ng/ml (0.0-2.4) Troponin I < 0.012ng/ml (0.00-0.12) Test 06/24/17 08:16 06/24/17 11:31 Sodium Level 143mmol/L (135-144) Potassium Level 4.2mmol/L (3.5-5.1) Chloride Level 106mmol/L (97-110) Carbon Dioxide Level 29mmol/L (21-31) Anion Gap 12 (8-16) Blood Urea Nitrogen 13mg/dl (7-20) Creatinine 0.73mg/dl (0.44-1.00) Glucose Level 140mg/dl (70-220) Hemoglobin A1c 7.7% (0-5.9) Calcium Level 9.2mg/dl (8.4-10.2) Magnesium Level 1.7mg/dl (1.7-2.5) Total Bilirubin 0.8mg/dl (0.2-1.3) Direct Bilirubin 0.00mg/dl (0.00-0.20) Indirect Bilirubin 0.8mg/dl (0-1.1) Aspartate Amino Transf (AST/SGOT) 48IU/L (15-46) Alanine Aminotransferase (ALT/SGPT) 84IU/L (13-69) Alkaline Phosphatase 56IU/L (42-121) Total Protein 7.2g/dl (6.1-8.1) Albumin 3.7g/dl (3.3-4.9) Globulin 3.50g/dl (1.3-3.2) Albumin/Globulin Ratio 1.05 Triglycerides Level 124mg/dl (0-149) Cholesterol Level 124mg/dl (100-200) LDL Cholesterol, Calculated 68mg/dl HDL Cholesterol 31mg/dl (35-98) Cholesterol/HDL Ratio 4.0RATIO Bedside Glucose 141mg/dL (70-220) LEVAR LANE M.D. Jun 24, 2017 15:37
--- NOTE | 2017-06-25 03:32 | CARRPT ---
DATE OF PROCEDURE: 06/24/2017 LEXISCAN CARDIOLITE STRESS TEST REASON FOR STRESS TESTING: Chest pain, assess for ischemia. BASELINE VITAL SIGNS AND ELECTROCARDIOGRAM: Pulse of 83, blood pressure 142/101. Electrocardiogram reveals atrial fibrillation at a rate of 83, normal axis, normal intervals with nonspecific ST and T-wave abnormalities diffusely. PROCEDURE: The patient underwent standard Lexiscan infusion per protocol over 10 seconds followed b y radiolabeled tracer. The patient's test was stopped due to completion of protocol. Maximal achie hair blood pressure during the test 178/105. Maximum achieved heart rate during the test 130. ELECTROCARDIOGRAM FINDINGS: The patient developed downsloping ST depressions in the inferolateral l margi during the stress test, resolved in recovery. No documented PVCs. The patient remained in atr ial fibrillation with some rapid ventricular response. SYMPTOMS: The patient had no complaints of chest pain or shortness of breath during the stress test . IMPRESSION: 1. Lexiscan induced ST and T-wave changes from baseline abnormalities that are suggestive, but nond iagnostic of cardiac ischemia. 2. No complaints of chest pain or shortness of breath during the stress test. 3. No documented premature ventricular contractions during the test. 4. Report of nuclear images to follow in separate dictation. Dictated By: JOSSY SUAREZ/ANNE Conf#: [id number] DID#: [id number] CC: ANTHONY BLOOM MD;*EndCC*
--- NOTE | 2017-06-27 22:35 | RADRPT ---
Vent Rate: 62 bpm RR Interval: 0 msec MA Interval: 144 msec QRS Duration: 104 msec QT Interval: 478 msec QTC Interval: 485 msec P-R-T [place]: 26 - 30 - -52 degrees Normal sinus rhythm T wave abnormality, consider anterolateral ischemia Prolonged QT Abnormal ECG Electronically Signed By: Jerardo Morejon [id number]
== END 2017-06-24 16:14 | disposition home or self-care (01) ==
LOC: E/R 06:03 → MS4 10:12
PROVIDERS: ADMIT Internal Medicine; ATTEND Internal Medicine
DX: R07.89 Other chest pain (principal); I25.10 Atherosclerotic heart disease of native coronary artery without angina pectoris; Z95.5 Presence of coronary angioplasty implant and graft; I10 Essential (primary) hypertension; E11.9 Type 2 diabetes mellitus without complications; E78.5 Hyperlipidemia, unspecified; I48.91 Unspecified atrial fibrillation; E66.9 Obesity, unspecified; Z68.32 Body mass index [BMI] 32.0-32.9, adult; Z79.82 Long term (current) use of aspirin; Z79.84 Long term (current) use of oral hypoglycemic drugs; Z82.49 Family history of ischemic heart disease and other diseases of the circulatory system
CPT/HCPCS: 36415; 71010; 78452; 80048; 80053; 80061; 82550; 82553; 82962; 83036; 83735; 84484; 85025; 85610; 85730; 93005; 93017; A9500; A9505; J2785; Z7500; Z7502; Z7610; G0378; J1815